=== PATIENT | male | born 1970 | race Caucasian/White ===

== ENCOUNTER 2018-05-21 13:25 | Inpatient (IN) | payer OTHER ==
[2018-05-21 14:06] VITALS: BMI 23.5
--- NOTE | 2018-05-21 15:10 | HP ---
COWS - Scale Resting Pulse: 0= [place] 80 or Below Sweatin= Chills/Flushing Restless Observation: 3= Extraneous Movement Pupil Size: 1= Pupils >than Normal Bone or Joint Aches: 2= Severe Diffuse Aches Runny Nose/ Eye Tearin= Runny Nose/Eyes GI Upset > 30mins: 2= Nausea/Diarrhea Tremor Observation: 2= Slight Tremor Visible Yawning Observation: 2= >3x During Session Anxiety or Irritability: 2=Irritable/Anxious Goose Flesh Skin: 0=Smooth Skin COWS Score: 17 CIWA Score - CIWA Score Nausea/Vomitin Muscle Tremors: 3 Anxiety: 2 Agitation: 2 Paroxysmal Sweats: 1-Minimal Palms Moist Orientation: 0-Oriented Tacttile Disturbances: 1-Very Mild Itch/Numbness Auditory Disturbances: 1-Very Mild Visual Disturbances: 1-Very Mild Sensitivity Headache: 2-Mild CIWA-Ar Total Score: 15 Admission ROS S - HPI Chief Complaint: I need help to stop using heroin,alcohol dependence,cocaine and marijuana dependence,suboxone maintenance,pcp abused hepatitis c multiple admissions in the past weight loss nicotine dependence history of hypertension,type 2 dm,neuropathy longest period of sobriety 7 years Allergies/Adverse Reactions: Allergies Allergy/AdvReac Type Severity Reaction Status Date / Time No Known Drug Allergies Allergy Verified 05/21/18 16:18 shellfish derived Allergy Difficulty Verified 05/21/18 15:16 Breathing History of Present Illness: this 47 years old male with heroin,alcohol,cocaine dependence,seeking detox,as mentioned above,on suboxone maintenance 8 mgs2 mgs sl bid has medication today history of htn type 2 dm,hepatitis c, weight loss nicotine dependence for inpatient detox Exam Limitations: No Limitations - Ebola screening Have you traveled outside of the country in the last 21 days: No Have you had contact with anyone from an Ebola affected area: No Have you been sick,other than usual withdrawal symptoms: No Do you have a fever: No - Review of Systems Constitutional: Loss of Appetite, Malaise, Night Sweats, Changes in sleep, Weakness, Unintentional Wgt. Loss EENT: reports: Tearing, Nose Congestion Respiratory: reports: No Symptoms reported Cardiac: reports: No Symptoms Reported GI: reports: Nausea, Vomiting, Abdominal cramping : reports: No Symptoms Reported Musculoskeletal: reports: Back Pain, Joint Pain, Muscle Pain Integumentary: reports: Dryness Neuro: reports: Headache, Tremors Endocrine: reports: No Symptoms Reported Hematology: reports: No Symptoms Reported Psychiatric: reports: No Sypmtoms Reported, Judgement Intact, Mood/Affect Appropiate, Orientated x3 Patient History - Patient Medical History Hx Anemia: No Hx Asthma: Yes (on albuterol inhaler) Hx Chronic Obstructive Pulmonary Disease (COPD): No Hx Cancer: No Hx Cardiac Disorders: No Hx Congestive Heart Failure: No Hx Hypertension: Yes (on med) Hx Hypercholesterolemia: No Hx Pacemaker: No HX Cerebrovascular Accident: No Hx Seizures: No Hx Dementia: No Hx Diabetes: Yes (on med) Hx Gastrointestinal Disorders: No Hx Liver Disease: No Hx Genitourinary Disorders: No Hx Sexually Transmitted Disorders: No Hx Renal Disease (ESRD): No Hx Thyroid Disease: No Hx Human Immunodeficiency Virus (HIV): No (negative last 04/29) Hx Hepatitis C: Yes (no treatment) Hx Depression: Yes (anxiety,insomnia) Hx Suicide Attempt: No Hx Bipolar Disorder: No Hx Schizophrenia: No Other Medical History: no suicidal,no homicidal - Patient Surgical History Hx Orthopedic Surgery: Yes (fx of right thumb since 1997) Other Surgical History: rhinoplasty in 1997 - PPD History Previous Implant?: Yes Documented Results: Positive w/o proof Implanted On Prior R Admission?: No PPD to be Administered?: Yes - Smoking Cessation Smoking history: Current every day smoker Have you smoked in the past 12 months: Yes Aproximately how many cigarettes per day: 3 Hx Chewing Tobacco Use: No Initiated information on smoking cessation: Yes 'Breaking Loose' booklet given: 05/21/18 - Substance & Tx. History Hx Alcohol Use: Yes Hx Substance Use: Yes Substance Use Type: Alcohol, Cocaine, Heroin Hx Substance Use Treatment: Yes (04/29 [facility]) - Substances Abused Alcohol Route: Oral Frequency: Daily Amount used: 2 40 oz beers and up Age of first use: 11 Date of Last Use: 05/20/18 PCP Route: Smoking Frequency: Daily Amount used: 1 bag Age of first use: 9 Date of Last Use: 05/20/18 Heroin Route: Inhalation Frequency: 1-2 times per week Amount used: 1 bag Age of first use: 13 Date of Last Use: 05/20/18 Cocaine Route: Smoking Frequency: 1-2 times per week Amount used: $80 Age of first use: 13 Date of Last Use: 05/20/18 Marijuana/Hashish Route: Smoking Frequency: 1-2 times per week Amount used: 1 joint Age of first use: 6 Date of Last Use: 05/18/18 Family Disease History - Family Disease History Family History: Denies Admission Physical Exam [facility] - Vital Signs Vital Signs: Vital Signs - 24 hr 05/21/18 13:44 Temperature 98.6 F Pulse Rate 80 Respiratory 18 Rate Blood Pressure 138/75 - Physical General Appearance: Yes: Moderate Distress, Tremorous, Irritable, Sweating, Anxious HEENTM: Yes: Within Normal Limits, JUNE, Pharynx Normal Respiratory: Yes: Lungs Clear, Normal Breath Sounds, No Respiratory Distress Neck: Yes: Within Normal Limits, Supple, Trachea in good position Breast: Yes: Within Normal Limits Cardiology: Yes: Within Normal Limits, Regular Rhythm, Regular Rate, S1, S2 Abdominal: Yes: Within Normal Limits, Normal Bowel Sounds, Non Tender, Flat, Soft Genitourinary: Yes: Within Normal Limits Back: Yes: Muscle Spasm Musculoskeletal: Yes: Joint Stiffness, Muscle Pain, Muscle weakness Extremities: Yes: Normal Range of Motion, Tremors Neurological: Yes: manager services II-XII NML intact, Fully Oriented, Alert, Motor Strength 5/5 Integumentary: Yes: Dry Lymphatic: Yes: Within Normal Limits - Diagnostic (1) Alcohol dependence with uncomplicated withdrawal Current Visit: Yes Status: Acute (2) Cocaine dependence Current Visit: Yes Status: Acute (3) Heroin abuse Current Visit: Yes Status: Acute (4) PCP (phencyclidine) abuse Current Visit: Yes Status: Acute (5) Positive PPD Current Visit: Yes Status: Acute (6) Encounter for monitoring Suboxone maintenance therapy Current Visit: Yes Status: Acute (7) Weight loss Current Visit: Yes Status: Acute (8) Insomnia Current Visit: Yes Status: Acute (9) Anxiety and depression Current Visit: Yes Status: Acute Cleared for Admission [facility] - Detox or Rehab [facility] Level of Care: Medically Managed Detox Regimen/Protocol: Librium [facility] Breath Alcohol Content Breath Alcohol Content: 0 Urine Drug Screen - Results Drug Screen Negative: No Urine Drug Screen Results: THC-Marijuana, HUSSEIN-Cocaine, OPI-Opiates, BAR- Barbiturates, BUP-Suboxone
[2018-05-21] MEDS ORDERED: P-EPHED 60MG/TRIPROLIDI 2.5MG TABLET PO PRN (15:32)
[2018-05-21] MEDS ORDERED: LOPERAMIDE HCL 2 MG CAPSULE PO PRN (15:32)
[2018-05-21] MEDS ORDERED: chlordiazePOXIDE HCL 25 MG CAPSULE PO PRN (15:32)
[2018-05-21] MEDS ORDERED: MAGNESIUM CITRATE 300 ML BOTTLE PO PRN (15:32)
[2018-05-21] MEDS ORDERED: MAGNESIUM HYDROX 2400MG/30ML ORAL SUSPENSION 30 ML CUP PO PRN (15:32)
[2018-05-21] MEDS ORDERED: guaiFENesin/D-METHORPHAN HB 10 ML UNIT-DOSE CUPS PO PRN (15:32)
[2018-05-21] MEDS ORDERED: MAG HYDROX/AL HYDROX/SIMETH 30 ML UNIT-DOSE CUP PO PRN (15:32)
[2018-05-21] MEDS ORDERED: ACETAMINOPHEN 325 MG TABLET (FP) PO PRN (15:32)
[2018-05-21] MEDS ORDERED: IBUPROFEN 400 MG TABLET (FP) PO PRN (15:32)
[2018-05-21] MEDS ORDERED: MENTHOL/PHENOL 1 EACH UD MM PRN (15:32)
[2018-05-21] MEDS ORDERED: ALBUTEROL SO4 8 GM HFA INHALER IH PRN (15:39)
[2018-05-21] MEDS: chlordiazePOXIDE HCL 25 MG CAPSULE PO SCH ×3 (17:33→23:37)
[2018-05-21] MEDS: NICOTINE 14 MG/24 HOURS TOPICAL PATCH TD SCH (17:33)
[2018-05-21] MEDS: GABAPENTIN 300 MG CAPSULE (FP) PO SCH ×2 (17:33→23:37)
[2018-05-21] MEDS: metFORMIN HCL 500 MG TABLET (FP) PO SCH (17:33)
[2018-05-21] MEDS ORDERED: MELATONIN 5 MG TABLETS PO PRN (22:00)
[2018-05-21] MEDS: BUPRENORPHINE/NALOXONE 8 MG/2 MG FILM PACKET SL SCH ×2 (23:00→23:37)
[2018-05-21 23:16] LABS: URINE APPEARANCE SLCLOUDY; URINE COLOR AMBER; URINE GLUCOSE (UA) 3+ (NEGATIVE); URINE KETONE TRACE (NEGATIVE); URINE LEUK ESTERASE NEGATIVE (NEGATIVE); URINE NITRITE NEGATIVE (NEGATIVE); URINE PROTEIN NEGATIVE (NEGATIVE); URINE UROBILINOGEN 4.0 E.U/dl mg/dL (0.2-1.0)
[2018-05-21] MEDS: THIAMINE HCL 100 MG TABLET (FP) PO SCH (23:37)
[2018-05-22] MEDS: GABAPENTIN 300 MG CAPSULE (FP) PO SCH ×3 (06:13→22:04)
[2018-05-22] MEDS: chlordiazePOXIDE HCL 25 MG CAPSULE PO SCH ×4 (06:13→22:04)
[2018-05-22] MEDS: metFORMIN HCL 500 MG TABLET (FP) PO SCH ×2 (07:14→17:59)
--- NOTE | 2018-05-22 07:36 | CONSULT ---
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 currently on on suboxone maintenance 8 mgs2 mgs sl bid therapy. Denies psychiatric hospitalization history. Substance Abuse History: - Smoking Cessation. Smoking history: Current every day smoker. Have you smoked in the past 12 months: Yes. Aproximately how many cigarettes per day: 3. Hx Chewing Tobacco Use: No. Initiated information on smoking cessation: Yes. 'Breaking Loose' booklet given: 05/21/18. - Substance & Tx. History. Hx Alcohol Use: Yes. Hx Substance Use: Yes. Substance Use Type : Alcohol, Cocaine, Heroin. Hx Substance Use Treatment: Yes (04/29 [facility]). - Substances Abused. Alcohol. Route: Oral. Frequency: Daily. Amount used: 2 40 oz beers and up. Age of first use: 11. Date of Last Use: 04/29. PCP. Route: Smoking. Frequency: Daily. Amount used: 1 bag. Age of first use: 9. Date of Last Use: 05/20/18. Heroin. Route: Inhalation. Frequency: 1-2 times per week. Amount used: 1 bag. Age of first use: 13. Date of Last Use: 05/20/18. Cocaine. Route: Smoking. Frequency: 1-2 times per week. Amount used: $80. Age of first use: 13. Date of Last Use: . Marijuana/Hashish. Route: Smoking. Frequency: 1-2 times per week. Amount used: 1 joint. Age of first use: 6. Date of Last Use: 05/18/18 Medical History: HepC+, DM-2, Weight loss history. Currently on Suboxone protocol 8mg po bid. Psychiatric History: Patient denies psychiatric hospitalization history, denies suicidal, homicidal history, no psychiatric medications taking prior to admission Physical/Sexual Abuse/Trauma History: Denies Additional Comment: Observation. Detox Unit Care Protocol. Mental Status Exam - Mental Status Exam Alert and Oriented to: Person Cognitive Function: Fair Patient Appearance: Unkempt Mood: Sad Affect: Flat Patient Behavior: Sedated Speech Pattern: Delayed Voice Loudness: Mildly Soft/Quiet Thought Process: Goal Oriented Thought Disorder: Being Controlled Hallucinations: Denies Suicidal Ideation: Denies Homicidal Ideation: Denies Insight/Judgement: Fair Sleep: Difficulty falling asleep Appetite: Weight loss Muscle strength/Tone: Normal Gait/Station: Shuffling Additional Comments: Observation. Detox Unit Care Protocol. Psychiatric Findings - Problem List ([place] 1, 2,3) (1) Hep C w/ coma, chronic Current Visit: Yes Status: Acute (2) DM type 2 (diabetes mellitus, type 2) Current Visit: Yes Status: Acute (3) Weight loss Current Visit: Yes Status: Acute (4) Alcohol dependence with uncomplicated withdrawal Current Visit: Yes Status: Acute (5) Anxiety and depression Current Visit: Yes Status: Acute (6) Cocaine dependence Current Visit: Yes Status: Acute (7) Encounter for monitoring Suboxone maintenance therapy Current Visit: Yes Status: Acute (8) Heroin abuse Current Visit: Yes Status: Acute (9) PCP (phencyclidine) abuse Current Visit: Yes Status: Acute - Initial Treatment Plan Initial Treatment Plan: Observation. Detox Unit Care Protocol.
[2018-05-22 10:06] LABS: HEMATOCRIT 39.3 % (35.4-49); HEMOGLOBIN 12.8 GM/dL (11.7-16.9); MCH 30.2 pg (25.7-33.7); MCHC 32.7 g/dl (32.0-35.9); MEAN CELL VOLUME 92.6 fl (80-96); MEAN PLT VOLUME 9.6 fl (7.5-11.1); PLATELET COUNT 201 K/MM3 (134-434); RBC 4.24 M/mm3 (4.00-5.60); RDW 14.2 % (11.9-15.9)
[2018-05-22] MEDS: NICOTINE 14 MG/24 HOURS TOPICAL PATCH TD SCH (10:06)
[2018-05-22] MEDS: PRENATAL VITAMINS W/ FOLIC ACID TABLET (FP) PO SCH (10:06)
[2018-05-22] MEDS: BUPRENORPHINE/NALOXONE 8 MG/2 MG FILM PACKET SL SCH ×2 (10:07→22:04)
[2018-05-22] MEDS: NICOTINE POLACRILEX 2 MG GUM BC PRN (10:11)
[2018-05-22 10:23] LABS: ALBUMIN 3.3 g/dl (3.4-5.0); ALK PHOS 59 U/L (45-117); ANION GAP 7 MMOL/L (8-16); BILIRUBIN,TOTAL 0.6 mg/dL (0.2-1); BLOOD UREA NITROGEN 12 mg/dL (7-18); CHLORIDE 102 mmol/L (98-107); CO2 29 mmol/L (21-32); CREATININE 0.8 mg/dL (0.55-1.3); GLUCOSE,RANDOM 247 mg/dL (74-106); POTASSIUM 4.4 mmol/L (3.5-5.1); SGOT/AST 48 U/L (15-37); SGPT/ALT 72 U/L (13-61); SODIUM 137 mmol/L (136-145); TOT PROT 6.4 g/dl (6.4-8.2)
--- NOTE | 2018-05-22 11:42 | PN ---
[facility] CIWA - CIWA Score Nausea/Vomitin-Mild Nausea/No Vomiting Muscle Tremors: 4-Moderate,w/Arms Extend Anxiety: 4-Mod. Anxious/Guarded Agitation: 3 Paroxysmal Sweats: 1-Minimal Palms Moist Orientation: 0-Oriented Tacttile Disturbances: 1-Very Mild Itch/Numbness Auditory Disturbances: 0-None Visual Disturbances: 0-None Headache: 0-None Present CIWA-Ar Total Score: 14 BHS COWS - Scale Resting Pulse: 0= [place] 80 or Below Sweatin= Chills/Flushing Restless Observation: 1= Difficult to Sit Still Pupil Size: 0= Normal to Room Light Bone or Joint Aches: 2= Severe Diffuse Aches Runny Nose/ Eye Tearin= Runny Nose/Eyes GI Upset > 30mins: 2= Nausea/Diarrhea Tremor Observation of Outstretched Hands: 2= Slight Tremor Visible Yawning Observation: 2= >3x During Session Anxiety or Irritability: 2=Irritable/Anxious Goose Flesh Skin: 0=Smooth Skin COWS Score: 14 [facility] Progress Note (SOAP) Subjective: sweat tremor chill hot trouble sleep at night body ache muscle cramp Objective: 05/22/18 11:49 Vital Signs Temperature 97.7 F 05/22/18 10:50 Pulse Rate 88 05/22/18 10:50 Respiratory Rate 17 05/22/18 10:50 Blood Pressure 105/62 05/22/18 10:50 O2 Sat by Pulse Oximetry (%) Laboratory Last Values WBC 6.0 K/mm3 (4.0-10.0) 05/22/18 06:00 RBC 4.24 M/mm3 (4.00-5.60) 05/22/18 06:00 Hgb 12.8 GM/dL (11.7-16.9) 05/22/18 06:00 Hct 39.3 % (35.4-49) 05/22/18 06:00 MCV 92.6 fl (80-96) 05/22/18 06:00 MCH 30.2 pg (25.7-33.7) 05/22/18 06:00 MCHC 32.7 g/dl (32.0-35.9) 05/22/18 06:00 RDW 14.2 % (11.9-15.9) 05/22/18 06:00 Plt Count 201 K/MM3 (134-434) 05/22/18 06:00 MPV 9.6 fl (7.5-11.1) 05/22/18 06:00 Sodium 137 mmol/L (136-145) 05/22/18 06:00 Potassium 4.4 mmol/L (3.5-5.1) 05/22/18 06:00 Chloride 102 mmol/L (98-107) 05/22/18 06:00 Carbon Dioxide 29 mmol/L (21-32) 05/22/18 06:00 Anion Gap 7 MMOL/L (8-16) L 05/22/18 06:00 BUN 12 mg/dL (7-18) 05/22/18 06:00 Creatinine 0.8 mg/dL (0.55-1.3) 05/22/18 06:00 Creat Clearance w eGFR > 60 (>60) 05/22/18 06:00 POC Glucometer 205 UNITS (80-120) 05/22/18 07:12 Random Glucose 247 mg/dL (74-106) H 05/22/18 06:00 Calcium 9.0 mg/dL (8.5-10.1) 05/22/18 06:00 Total Bilirubin 0.6 mg/dL (0.2-1) 05/22/18 06:00 AST 48 U/L (15-37) H 05/22/18 06:00 ALT 72 U/L (13-61) H 05/22/18 06:00 Alkaline Phosphatase 59 U/L (45-117) 05/22/18 06:00 Total Protein 6.4 g/dl (6.4-8.2) 05/22/18 06:00 Albumin 3.3 g/dl (3.4-5.0) L 05/22/18 06:00 Urine Color Cathleen 05/21/18 23:00 Urine Appearance Slcloudy 05/21/18 23:00 Urine pH 5.0 (5.0-8.0) 05/21/18 23:00 Ur Specific [place] 1.032 (1.010-1.035) 05/21/18 23:00 Urine Protein Negative (NEGATIVE) 05/21/18 23:00 Urine Glucose (UA) 3+ (NEGATIVE) H 05/21/18 23:00 Urine Ketones Trace (NEGATIVE) H 05/21/18 23:00 Urine Blood Negative (NEGATIVE) 05/21/18 23:00 Urine Nitrite Negative (NEGATIVE) 05/21/18 23:00 Urine Bilirubin 2.0 (<2.0 mg/dL) 05/21/18 23:00 Urine Urobilinogen 4.0 e.u/dl mg/dL (0.2-1.0) 05/21/18 23:00 Ur Leukocyte Esterase Negative (NEGATIVE) 05/21/18 23:00 RPR Titer Nonreactive (NONREACTIVE) 05/22/18 06:00 lab noted Assessment: 05/22/18 11:50 withdrawal sx Plan: continue detox
[2018-05-22] MEDS: LISINOPRIL 20 MG TABLET (FP) PO SCH (11:57)
--- NOTE | 2018-05-22 12:14 | EKG ---
Test Reason : Blood Pressure : / mmHG Vent. Rate : 065 BPM Atrial Rate : 065 BPM P-R Int : 140 ms QRS Dur : 086 ms QT Int : 374 ms P-R-T Axes : 065 069 066 degrees QTc Int : 388 ms NORMAL SINUS RHYTHM MINIMAL VOLTAGE CRITERIA FOR LVH, MAY BE NORMAL VARIANT EARLY REPOLARIZATION BORDERLINE ECG NO PREVIOUS ECGS AVAILABLE Confirmed by NADIYA LU MD ([id number]) on 05/22/2018 12:13:41 PM Referred By: Confirmed By:NADIYA LU MD
[2018-05-22] MEDS: THIAMINE HCL 100 MG TABLET (FP) PO SCH (22:04)
[2018-05-23] MEDS: metFORMIN HCL 500 MG TABLET (FP) PO SCH ×2 (06:30→17:38)
[2018-05-23] MEDS: GABAPENTIN 300 MG CAPSULE (FP) PO SCH ×3 (06:30→22:14)
[2018-05-23] MEDS: chlordiazePOXIDE HCL 25 MG CAPSULE PO SCH ×2 (06:30→10:51)
[2018-05-23] MEDS: PRENATAL VITAMINS W/ FOLIC ACID TABLET (FP) PO SCH (10:47)
[2018-05-23] MEDS: BUPRENORPHINE/NALOXONE 8 MG/2 MG FILM PACKET SL SCH ×2 (10:47→22:14)
[2018-05-23] MEDS: NICOTINE 14 MG/24 HOURS TOPICAL PATCH TD SCH (10:47)
[2018-05-23] MEDS: LISINOPRIL 20 MG TABLET (FP) PO SCH (10:48)
--- NOTE | 2018-05-23 11:11 | PN ---
[facility] CIWA - CIWA Score Nausea/Vomitin-No Nausea/No Vomiting Muscle Tremors: 3 Anxiety: 2 Agitation: 4-Moderately Restless Paroxysmal Sweats: 3 Orientation: 0-Oriented Tacttile Disturbances: 0-None Auditory Disturbances: 0-None Visual Disturbances: 0-None Headache: 0-None Present CIWA-Ar Total Score: 12 BHS COWS - Scale Resting Pulse: 1= [place] 81-100 Sweatin= Chills/Flushing Restless Observation: 1= Difficult to Sit Still Pupil Size: 0= Normal to Room Light Bone or Joint Aches: 2= Severe Diffuse Aches Runny Nose/ Eye Tearin= Nasal Congestion GI Upset > 30mins: 1= Stomach Cramp Tremor Observation of Outstretched Hands: 2= Slight Tremor Visible Yawning Observation: 1= 1-2x During Session Anxiety or Irritability: 1=Feels Anxious/Irritable Goose Flesh Skin: 0=Smooth Skin COWS Score: 11 S Progress Note (SOAP) Subjective: irritable agitation anxiety sweats chills Objective: 05/23/18 11:11 Vital Signs Temperature 97.3 F L 05/23/18 10:09 Pulse Rate 88 05/23/18 10:09 Respiratory Rate 18 05/23/18 10:09 Blood Pressure 123/70 05/23/18 10:09 O2 Sat by Pulse Oximetry (%) Laboratory Tests 05/21/18 05/21/18 05/22/18 15:10 23:00 06:00 WBC 6.0 RBC 4.24 Hgb 12.8 Hct 39.3 MCV 92.6 MCH 30.2 MCHC 32.7 RDW 14.2 Plt Count 201 MPV 9.6 Sodium Potassium Chloride Carbon Dioxide Anion Gap BUN Creatinine Creat Clearance w eGFR POC Glucometer 243 Random Glucose Calcium Total Bilirubin AST ALT Alkaline Phosphatase Total Protein Albumin Urine Color Cathleen Urine Appearance Slcloudy Urine pH 5.0 Ur Specific [place] 1.032 Urine Protein Negative Urine Glucose (UA) 3+ H Urine Ketones Trace H Urine Blood Negative Urine Nitrite Negative Urine Bilirubin 2.0 Urine Urobilinogen 4.0 e.u/dl Ur Leukocyte Esterase Negative RPR Titer 05/22/18 05/22/18 05/22/18 06:00 06:00 07:12 WBC RBC Hgb Hct MCV MCH MCHC RDW Plt Count MPV Sodium 137 Potassium 4.4 Chloride 102 Carbon Dioxide 29 Anion Gap 7 L BUN 12 Creatinine 0.8 Creat Clearance w eGFR > 60 POC Glucometer 205 Random Glucose 247 H Calcium 9.0 Total Bilirubin 0.6 AST 48 H ALT 72 H Alkaline Phosphatase 59 Total Protein 6.4 Albumin 3.3 L Urine Color Urine Appearance Urine pH Ur Specific [place] Urine Protein Urine Glucose (UA) Urine Ketones Urine Blood Urine Nitrite Urine Bilirubin Urine Urobilinogen Ur Leukocyte Esterase RPR Titer Nonreactive 05/22/18 05/23/18 16:30 06:25 WBC RBC Hgb Hct MCV MCH MCHC RDW Plt Count MPV Sodium Potassium Chloride Carbon Dioxide Anion Gap BUN Creatinine Creat Clearance w eGFR POC Glucometer 181 193 Random Glucose Calcium Total Bilirubin AST ALT Alkaline Phosphatase Total Protein Albumin Urine Color Urine Appearance Urine pH Ur Specific [place] Urine Protein Urine Glucose (UA) Urine Ketones Urine Blood Urine Nitrite Urine Bilirubin Urine Urobilinogen Ur Leukocyte Esterase RPR Titer aaox3 ambulating no acute distress Assessment: 05/23/18 11:11 withdrawal sx Plan: continue detox increase fluids
[2018-05-23] MEDS: chlordiazePOXIDE 5 MG CAPSULE PO SCH ×2 (18:19→22:14)
[2018-05-23] MEDS: THIAMINE HCL 100 MG TABLET (FP) PO SCH (22:14)
[2018-05-24] MEDS: chlordiazePOXIDE 5 MG CAPSULE PO SCH ×2 (07:34→10:54)
[2018-05-24] MEDS: GABAPENTIN 300 MG CAPSULE (FP) PO SCH ×3 (07:34→23:00)
[2018-05-24] MEDS: PRENATAL VITAMINS W/ FOLIC ACID TABLET (FP) PO SCH (10:51)
[2018-05-24] MEDS: LISINOPRIL 20 MG TABLET (FP) PO SCH (10:52)
[2018-05-24] MEDS: NICOTINE 14 MG/24 HOURS TOPICAL PATCH TD SCH (10:52)
[2018-05-24] MEDS: BUPRENORPHINE/NALOXONE 8 MG/2 MG FILM PACKET SL SCH ×2 (10:52→23:01)
[2018-05-24] MEDS: NICOTINE POLACRILEX 2 MG GUM BC PRN (10:57)
--- NOTE | 2018-05-24 11:06 | PN ---
[facility] Progress Note Note: Vital Signs Temperature 97.9 F 05/24/18 10:31 Pulse Rate 71 05/24/18 10:31 Respiratory Rate 18 05/24/18 10:31 Blood Pressure 113/66 05/24/18 10:31 O2 Sat by Pulse Oximetry (%) Laboratory Last Values WBC 6.0 K/mm3 (4.0-10.0) 05/22/18 06:00 RBC 4.24 M/mm3 (4.00-5.60) 05/22/18 06:00 Hgb 12.8 GM/dL (11.7-16.9) 05/22/18 06:00 Hct 39.3 % (35.4-49) 05/22/18 06:00 MCV 92.6 fl (80-96) 05/22/18 06:00 MCH 30.2 pg (25.7-33.7) 05/22/18 06:00 MCHC 32.7 g/dl (32.0-35.9) 05/22/18 06:00 RDW 14.2 % (11.9-15.9) 05/22/18 06:00 Plt Count 201 K/MM3 (134-434) 05/22/18 06:00 MPV 9.6 fl (7.5-11.1) 05/22/18 06:00 Sodium 137 mmol/L (136-145) 05/22/18 06:00 Potassium 4.4 mmol/L (3.5-5.1) 05/22/18 06:00 Chloride 102 mmol/L (98-107) 05/22/18 06:00 Carbon Dioxide 29 mmol/L (21-32) 05/22/18 06:00 Anion Gap 7 MMOL/L (8-16) L 05/22/18 06:00 BUN 12 mg/dL (7-18) 05/22/18 06:00 Creatinine 0.8 mg/dL (0.55-1.3) 05/22/18 06:00 Creat Clearance w eGFR > 60 (>60) 05/22/18 06:00 POC Glucometer 298 UNITS (80-120) 05/23/18 16:46 Random Glucose 247 mg/dL (74-106) H 05/22/18 06:00 Calcium 9.0 mg/dL (8.5-10.1) 05/22/18 06:00 Total Bilirubin 0.6 mg/dL (0.2-1) 05/22/18 06:00 AST 48 U/L (15-37) H 05/22/18 06:00 ALT 72 U/L (13-61) H 05/22/18 06:00 Alkaline Phosphatase 59 U/L (45-117) 05/22/18 06:00 Total Protein 6.4 g/dl (6.4-8.2) 05/22/18 06:00 Albumin 3.3 g/dl (3.4-5.0) L 05/22/18 06:00 Urine Color Cathleen 05/21/18 23:00 Urine Appearance Slcloudy 05/21/18 23:00 Urine pH 5.0 (5.0-8.0) 05/21/18 23:00 Ur Specific [place] 1.032 (1.010-1.035) 05/21/18 23:00 Urine Protein Negative (NEGATIVE) 05/21/18 23:00 Urine Glucose (UA) 3+ (NEGATIVE) H 05/21/18 23:00 Urine Ketones Trace (NEGATIVE) H 05/21/18 23:00 Urine Blood Negative (NEGATIVE) 05/21/18 23:00 Urine Nitrite Negative (NEGATIVE) 05/21/18 23:00 Urine Bilirubin 2.0 (<2.0 mg/dL) 05/21/18 23:00 Urine Urobilinogen 4.0 e.u/dl mg/dL (0.2-1.0) 05/21/18 23:00 Ur Leukocyte Esterase Negative (NEGATIVE) 05/21/18 23:00 RPR Titer Nonreactive (NONREACTIVE) 05/22/18 06:00 Irritable, anxious, back pain, + edema b/l lower extremities, pain on b/l plantar surface ( chronic) Aox3, anxious, irritable no adventitious breath sounds Skin intact, + 1 no-pitting edema both feet Full ROM ambulating in the unit independently withdrawal sx back pain increase PO fluids continue detox flexeril PRN lidocaine TP QD WI elevated lower extremities continue to monitor
[2018-05-24] MEDS ORDERED: LIDOCAINE 5% TOPICAL PATCH TP SCH (11:15)
[2018-05-24] MEDS: metFORMIN HCL 500 MG TABLET (FP) PO SCH ×2 (11:25→18:06)
[2018-05-24] MEDS: CYCLOBENZAPRINE HCL 5 MG TABLET PO SCH ×2 (13:10→23:00)
[2018-05-24] MEDS: hydrOXYzine PAMOATE 50 MG CAPSULE (FP) PO PRN (13:11)
[2018-05-24] MEDS: chlordiazePOXIDE HCL 10 MG CAPSULE PO SCH ×2 (18:06→23:01)
[2018-05-24] MEDS ORDERED: LIDOCAINE PATCH REMOVAL MC SCH (22:00)
[2018-05-24] MEDS: THIAMINE HCL 100 MG TABLET (FP) PO SCH (23:01)
[2018-05-25] MEDS: GABAPENTIN 300 MG CAPSULE (FP) PO SCH (06:54)
[2018-05-25] MEDS: chlordiazePOXIDE HCL 10 MG CAPSULE PO SCH ×2 (06:54→10:42)
[2018-05-25] MEDS: CYCLOBENZAPRINE HCL 5 MG TABLET PO SCH (06:54)
[2018-05-25] MEDS: metFORMIN HCL 500 MG TABLET (FP) PO SCH (06:55)
--- NOTE | 2018-05-25 09:14 | DS ---
[facility] Detox Discharge Summary Admission Date: 05/21/18 Discharge Date: 05/25/18 - History Present History: Alcohol Dependence Additional Comments: 47 years old male admitted on 05/21/18 for alcohol withdrawal sx completed alcohol detox regimen tolerated well denies alcohol withdrawal sx alert oriented x 3 no acute distress after care [facility] - Physical Exam Results Vital Signs: Vital Signs Temperature 97.3 F L 05/25/18 07:53 Pulse Rate 64 05/25/18 07:53 Respiratory Rate 18 05/25/18 07:53 Blood Pressure 120/67 05/25/18 07:53 O2 Sat by Pulse Oximetry (%) Pertinent Admission Physical Exam Findings: alcohol withdrawal sx Vital Signs Temperature 97.9 F 05/25/18 09:52 Pulse Rate 61 05/25/18 09:52 Respiratory Rate 18 05/25/18 09:52 Blood Pressure 95/62 05/25/18 09:52 O2 Sat by Pulse Oximetry (%) Laboratory Last Values WBC 6.0 K/mm3 (4.0-10.0) 05/22/18 06:00 RBC 4.24 M/mm3 (4.00-5.60) 05/22/18 06:00 Hgb 12.8 GM/dL (11.7-16.9) 05/22/18 06:00 Hct 39.3 % (35.4-49) 05/22/18 06:00 MCV 92.6 fl (80-96) 05/22/18 06:00 MCH 30.2 pg (25.7-33.7) 05/22/18 06:00 MCHC 32.7 g/dl (32.0-35.9) 05/22/18 06:00 RDW 14.2 % (11.9-15.9) 05/22/18 06:00 Plt Count 201 K/MM3 (134-434) 05/22/18 06:00 MPV 9.6 fl (7.5-11.1) 05/22/18 06:00 Sodium 137 mmol/L (136-145) 05/22/18 06:00 Potassium 4.4 mmol/L (3.5-5.1) 05/22/18 06:00 Chloride 102 mmol/L (98-107) 05/22/18 06:00 Carbon Dioxide 29 mmol/L (21-32) 05/22/18 06:00 Anion Gap 7 MMOL/L (8-16) L 05/22/18 06:00 BUN 12 mg/dL (7-18) 05/22/18 06:00 Creatinine 0.8 mg/dL (0.55-1.3) 05/22/18 06:00 Creat Clearance w eGFR > 60 (>60) 05/22/18 06:00 POC Glucometer 251 UNITS (80-120) 05/25/18 06:31 Random Glucose 247 mg/dL (74-106) H 05/22/18 06:00 Calcium 9.0 mg/dL (8.5-10.1) 05/22/18 06:00 Total Bilirubin 0.6 mg/dL (0.2-1) 05/22/18 06:00 AST 48 U/L (15-37) H 05/22/18 06:00 ALT 72 U/L (13-61) H 05/22/18 06:00 Alkaline Phosphatase 59 U/L (45-117) 05/22/18 06:00 Total Protein 6.4 g/dl (6.4-8.2) 05/22/18 06:00 Albumin 3.3 g/dl (3.4-5.0) L 05/22/18 06:00 Urine Color Cathleen 05/21/18 23:00 Urine Appearance Slcloudy 05/21/18 23:00 Urine pH 5.0 (5.0-8.0) 05/21/18 23:00 Ur Specific [place] 1.032 (1.010-1.035) 05/21/18 23:00 Urine Protein Negative (NEGATIVE) 05/21/18 23:00 Urine Glucose (UA) 3+ (NEGATIVE) H 05/21/18 23:00 Urine Ketones Trace (NEGATIVE) H 05/21/18 23:00 Urine Blood Negative (NEGATIVE) 05/21/18 23:00 Urine Nitrite Negative (NEGATIVE) 05/21/18 23:00 Urine Bilirubin 2.0 (<2.0 mg/dL) 05/21/18 23:00 Urine Urobilinogen 4.0 e.u/dl mg/dL (0.2-1.0) 05/21/18 23:00 Ur Leukocyte Esterase Negative (NEGATIVE) 05/21/18 23:00 RPR Titer Nonreactive (NONREACTIVE) 05/22/18 06:00 lab noted - Treatment Hospital Course: Detox Protocol Followed, Detoxed Safely, Responded well, Discharged Condition Good, Rehab Referral Accepted Patient has Accepted a Rehab Referral to: [facility] Medication Discharge Medications: Ambulatory Orders Albuterol Sulfate Inhaler - [Ventolin HFA Inhaler -] 2 inh PO Q4H PRN 05/21/18 Buprenorphine/Naloxone [Suboxone 8Mg/2Mg Sl Film -] 1 each SL BID 05/21/18 Gabapentin [Neurontin -] 300 mg PO Q8H 05/21/18 Lisinopril 20 mg PO DAILY 05/21/18 Metformin HCl [Glucophage] 1,000 mg PO BID 05/21/18 Albuterol Sulfate Inhaler - [Ventolin HFA Inhaler -] 2 puff IH Q4H PRN #1 inhaler 05/24/18 Lisinopril [Prinivil] 20 mg PO DAILY #30 tablet 05/24/18 metFORMIN HCL [Glucophage -] 1,000 mg PO BIDAC #30 tablet 05/24/18 - Diagnosis (1) Alcohol dependence with uncomplicated withdrawal Status: Acute (2) DM type 2 (diabetes mellitus, type 2) Status: Chronic Qualifiers: Diabetes mellitus terminal worker insulin use: without terminal worker use Diabetes mellitus complication status: with unspecified complications Qualified Code(s) : E11.8 - Type 2 diabetes mellitus with unspecified complications (3) Encounter for monitoring Suboxone maintenance therapy Status: Chronic (4) Positive PPD Status: Resolved (5) Weight loss Status: Acute (6) Hep C w/ coma, chronic Status: Chronic - AMA Did Patient Leave Against Medical Advice: No
[2018-05-25 09:54] VITALS: BP 95/62; PULSE 61; TEMP 97.9
[2018-05-25] MEDS: LISINOPRIL 20 MG TABLET (FP) PO SCH (10:42)
[2018-05-25] MEDS: PRENATAL VITAMINS W/ FOLIC ACID TABLET (FP) PO SCH (10:42)
[2018-05-25] MEDS: NICOTINE 14 MG/24 HOURS TOPICAL PATCH TD SCH (10:42)
[2018-05-25] MEDS: hydrOXYzine PAMOATE 50 MG CAPSULE (FP) PO PRN (10:42)
[2018-05-25] MEDS: BUPRENORPHINE/NALOXONE 8 MG/2 MG FILM PACKET SL SCH (11:58)
== END 2018-05-25 11:30 | disposition home or self-care (01) | DRG 773 ==
LOC: YASAS 13:25 → Y6N 15:45
PROC: HZ2ZZZZ Detoxification Services for Substance Abuse Treatment (ICD-10-PCS; principal; 2018-05-21)
DX: F10.230 Alcohol dependence with withdrawal, uncomplicated (principal); F14.20 Cocaine dependence, uncomplicated; F11.10 Opioid abuse, uncomplicated; F16.10 Hallucinogen abuse, uncomplicated; F41.8 Other specified anxiety disorders; F32.9 Major depressive disorder, single episode, unspecified; B18.2 Chronic viral hepatitis C; G47.00 Insomnia, unspecified; R76.11 Nonspecific reaction to tuberculin skin test without active tuberculosis; E11.9 Type 2 diabetes mellitus without complications; Z79.84 Long term (current) use of oral hypoglycemic drugs; R63.4 Abnormal weight loss; Z68.23 Body mass index [BMI] 23.0-23.9, adult; Z51.81 Encounter for therapeutic drug level monitoring; Z91.013 Allergy to seafood
CPT/HCPCS: 36415; 80053; 81003; 82962; 85027; 86593; 93005; 93010

== ENCOUNTER 2023-09-30 20:53 | Inpatient (IN) | payer BC, OTHER ==
[2023-09-30 21:15] VITALS: BMI 22.8
[2023-09-30 22:18] LABS: BASO % 0.3 % (0-2.0); EOS % 0.3 % (0-4.5); HEMATOCRIT 33.8 % (35.4-49); LYMPH % 11.9 % (8-40); MCH 30.3 pg (25.7-33.7); MCHC 32.7 g/dl (32.0-35.9); MEAN CELL VOLUME 92.7 fl (80-96); MEAN PLT VOLUME 7.1 fl (7.5-11.1); MONO % 8.2 % (3.8-10.2); NEUT % 79.3 % (42.8-82.8); PLATELET COUNT 344 10^3/uL (134-434); RBC 3.65 M/mm3 (4.00-5.60); RDW 14.3 % (11.9-15.9); VENOUS BASE EXCESS -0.1 mmol/L (-2-2); VENOUS O2 SATURATION 88.7 % (70-80); VENOUS PCO2 49.9 mmHg (38-52); VENOUS PH 7.338 (7.310-7.410); WHITE BLOOD COUNT 11.2 K/mm3 (4.0-10.0)
[2023-09-30 22:28] LABS: INR 1.02 (0.83-1.09); PROTHROMBIN TIME (PATIENT) 11.8 SEC (9.7-13.0)
[2023-09-30 22:31] LABS: ACTIVATED PTT 36.5 SECONDS (25.2-36.5)
[2023-09-30 22:37] LABS: CHLORIDE 96 mmol/L (98-107); POTASSIUM 4.1 mmol/L (3.5-5.1); SODIUM 132 mmol/L (136-145)
[2023-09-30 22:39] LABS: CALCIUM 8.6 mg/dL (8.5-10.1)
[2023-09-30 22:40] LABS: ALBUMIN 2.8 g/dl (3.4-5.0); ANION GAP 8 mmol/L (4-13); BLOOD UREA NITROGEN 14.5 mg/dL (7-18); CO2 28 mmol/L (21-32)
[2023-09-30 22:43] LABS: CREATININE 1.1 mg/dL (0.55-1.3); SGOT/AST 24 U/L (15-37); SGPT/ALT 46 U/L (13-61)
[2023-09-30 22:44] LABS: BILIRUBIN,TOTAL 0.3 mg/dL (0.2-1)
[2023-09-30 22:45] LABS: TOT PROT 6.8 g/dl (6.4-8.2)
[2023-09-30 22:46] LABS: ALK PHOS 137 U/L (45-117)
[2023-09-30 22:47] LABS: LACTIC ACID 3.6 mmol/L (0.4-2.0)
[2023-09-30 22:48] LABS: GLUCOSE,RANDOM 759 mg/dL (74-106)
[2023-09-30] MEDS: ACETAMINOPHEN 1000 MG/100 ML BAG IVPB ONE (23:06)
[2023-09-30] MEDS: SODIUM CHLORIDE 0.9% 500 ML INFUS.BAG IV ONE (23:06)
[2023-09-30] MEDS: PIPERACILLIN/TAZOB 4.5 GM 4.5 GM in DEXTROSE 5%-WATER 100 ML IVPB ONE (23:06)
[2023-09-30] MEDS ORDERED: ACETAMINOPHEN INJECTION 100 ML IVPB ONE (23:10)
[2023-09-30] MEDS ORDERED: PIPERACILLIN/TAZOB 4.5 GM 4.5 GM/100 ML BAG IVPB ONE (23:10)
[2023-09-30 23:14] LABS: ERYTHROCYTE SEDIMENTATION RATE 38 mm/hr (0-20)
[2023-09-30] MEDS: INSULIN REGULAR HUMAN 100 UNITS/ML *VIAL IVPUSH ONE (23:29)
[2023-09-30] MEDS: INSULIN (NOVOLOG) ASPART 100 UNITS/ML 10ML VIAL SQ ONE (23:34)
[2023-09-30] MEDS ORDERED: VANCOMYCIN 1 GRAM (PRE-DOCKED) 1,000 MG/250 ML BAG IVPB ONE (23:48)
[2023-09-30 23:57] LABS: MAGNESIUM 1.6 mg/dL (1.8-2.4)
[2023-10-01 00:01] LABS: PHOSPHOROUS 3.6 mg/dL (2.5-4.9)
[2023-10-01] MEDS: SODIUM CHLORIDE 0.9% 500 ML INFUS.BAG IV ONE (00:03)
[2023-10-01] MEDS: VANCOMYCIN 1,000 MG in DEXTROSE 5%-WATER - 250 ML IVPB ONE (00:03)
[2023-10-01] MEDS ORDERED: ALBUTEROL SO4 HFA INHALER IH PRN (02:47)
[2023-10-01] MEDS: INSULIN REGULAR HUMAN 100 UNITS/ML *VIAL IVPUSH ONE ×2 (04:02→04:55)
[2023-10-01] MEDS: SODIUM CHLORIDE 2,000 ML IV STA (04:53)
[2023-10-01 06:21] LABS: ARTERIAL BLD GAS O2 SATURATION 80.5 % (95-98); ARTERIAL BLOOD GAS BASE EXCESS -0.1 mmol/L (-2-2); ARTERIAL BLOOD GAS PO2 45.2 mmHg (80-100); ARTERIAL BLOOD GAS pH 7.385 (7.350-7.450)
[2023-10-01] MEDS: INSULIN ASPART SLIDING SCALE (NOVOLOG) 1 VIAL SQ SCH (07:03)
[2023-10-01] MEDS: SODIUM CHLORIDE 1,000 ML IV SCH (07:07)
[2023-10-01] MEDS: INSULIN (LEVEMIR) 100 UNITS/ML UNITS SQ SCH (07:49)
[2023-10-01] MEDS: INSULIN (NOVOLOG) ASPART 100 UNITS/ML 10ML VIAL SQ ONE (07:49)
[2023-10-01] MEDS: MAGNESIUM SULF 50% (8.12 MEQ/2 ML-1 GM VIAL) IVPB ONE (07:50)
[2023-10-01 09:38] LABS: POTASSIUM 3.6 mmol/L (3.5-5.1)
[2023-10-01] MEDS: ENOXAPARIN NA (PORCINE) 40 MG/0.4 ML DISP.SYRIN SQ SCH (09:38)
[2023-10-01 09:40] LABS: BLOOD UREA NITROGEN 10.9 mg/dL (7-18)
[2023-10-01] MEDS: PIPERACILLIN/TAZOB 3.375 GM 3.375 GM in DEXTROSE 5%-WATER - 50 ML IVPB SCH ×2 (09:42→17:22)
[2023-10-01 09:43] LABS: CREATININE 0.6 mg/dL (0.55-1.3)
[2023-10-01 09:44] LABS: PHOSPHOROUS 2.4 mg/dL (2.5-4.9)
[2023-10-01] MEDS ORDERED: GABAPENTIN 300 MG CAPSULE PO SCH (10:00)
[2023-10-01] MEDS: VANCOMYCIN/WATER FOR INJ (PEG) 1,000 MG/200 ML BAG IVPB SCH ×2 (10:30→21:33)
[2023-10-01] MEDS: VANCOMYCIN 1,000 MG in DEXTROSE 5%-WATER - 250 ML IVPB SCH (12:20)
[2023-10-01] MEDS: methaDONE HCL 10 MG TABLET PO ONE ×2 (13:47→13:59)
[2023-10-01] MEDS: amLODIPine BESYLATE 5 MG TABLET (FP) PO SCH (18:19)
[2023-10-01] MEDS: NAPH,MB-DB/K PH,MBDB POWDER PACKET PO ONE (18:19)
[2023-10-01] MEDS: cloNIDine HCL 0.1 MG TABLET PO PRN (21:34)
[2023-10-01] MEDS ORDERED: PIPERACILLIN/TAZOB 3.375 GM 3.375 GM in DEXTROSE 5%-WATER - 50 ML IVPB SCH (22:00)
[2023-10-02] MEDS: INSULIN (NOVOLOG) ASPART 100 UNITS/ML 10ML VIAL SQ ONE (06:24)
[2023-10-02] MEDS: HALOPERIDOL LACTATE 5 MG/ML IM ONE (09:37)
[2023-10-02 09:53] LABS: BASO % 0.5 % (0-2.0); EOS % 0.6 % (0-4.5); HEMATOCRIT 35.4 % (35.4-49); HEMOGLOBIN 12.1 GM/dL (11.7-16.9); LYMPH % 25.9 % (8-40); MCH 30.1 pg (25.7-33.7); MCHC 34.1 g/dl (32.0-35.9); MEAN CELL VOLUME 88.4 fl (80-96); MEAN PLT VOLUME 7.3 fl (7.5-11.1); MONO % 7.4 % (3.8-10.2); NEUT % 65.6 % (42.8-82.8); PLATELET COUNT 409 10^3/uL (134-434); RBC 4.01 M/mm3 (4.00-5.60); RDW 14.5 % (11.9-15.9)
[2023-10-02 10:06] LABS: POTASSIUM 3.9 mmol/L (3.5-5.1)
[2023-10-02 10:27] LABS: CALCIUM 9.2 mg/dL (8.5-10.1)
[2023-10-02 10:28] LABS: ALBUMIN 2.7 g/dl (3.4-5.0)
[2023-10-02 10:31] LABS: CREATININE 0.5 mg/dL (0.55-1.3)
[2023-10-02 10:32] LABS: BILIRUBIN,TOTAL 0.7 mg/dL (0.2-1)
[2023-10-02 10:33] LABS: TOT PROT 6.5 g/dl (6.4-8.2)
[2023-10-02] MEDS ORDERED: DEXTROSE 50%-WATER - 25 GM/50 ML VIAL IVPUSH PRN (11:26)
[2023-10-02] MEDS ORDERED: amLODIPine BESYLATE 5 MG TABLET (FP) PO ONE (11:35)
[2023-10-02] MEDS: INSULIN (LEVEMIR) 100 UNITS/ML UNITS SQ SCH (21:33)
[2023-10-03] MEDS: amLODIPine BESYLATE 5 MG TABLET (FP) PO SCH (09:46)
[2023-10-03] MEDS: methaDONE HCL 10 MG TABLET PO ONE (09:50)
[2023-10-03] MEDS ORDERED: amLODIPine BESYLATE 10 MG TABLET (FP) PO SCH (10:00)
[2023-10-03] MEDS: ACETAMINOPHEN 500 MG TABLET (FP) PO PRN (10:41)
[2023-10-03 11:17] VITALS: RESP 18
[2023-10-03] MEDS: INSULIN ASPART SLIDING SCALE (NOVOLOG) 1 VIAL SQ SCH (11:36)
[2023-10-03 14:10] LABS: HIV INTERPRETATION NEGATIVE (NEGATIVE)
[2023-10-04 11:15] LABS: BASO % 0.7 % (0-2.0); EOS % 0.7 % (0-4.5); HEMATOCRIT 32.5 % (35.4-49); HEMOGLOBIN 10.7 GM/dL (11.7-16.9); LYMPH % 29.8 % (8-40); MCH 29.5 pg (25.7-33.7); MCHC 32.8 g/dl (32.0-35.9); MEAN CELL VOLUME 90.1 fl (80-96); MONO % 9.2 % (3.8-10.2); NEUT % 59.6 % (42.8-82.8); PLATELET COUNT 402 10^3/uL (134-434); RBC 3.61 M/mm3 (4.00-5.60); RDW 14.2 % (11.9-15.9); WHITE BLOOD COUNT 8.1 K/mm3 (4.0-10.0)
[2023-10-04 11:45] LABS: POTASSIUM 4.5 mmol/L (3.5-5.1)
[2023-10-04 11:50] LABS: ALBUMIN 2.8 g/dl (3.4-5.0); BLOOD UREA NITROGEN 15.7 mg/dL (7-18); CALCIUM 8.8 mg/dL (8.5-10.1)
[2023-10-04 11:53] LABS: CREATININE 0.7 mg/dL (0.55-1.3)
[2023-10-04 11:55] LABS: BILIRUBIN,TOTAL 0.3 mg/dL (0.2-1); TOT PROT 6.7 g/dl (6.4-8.2)
[2023-10-04] MEDS: BACITRACIN ZINC 15 GM TUBE TOPICAL OINTMENT TP SCH (13:01)
[2023-10-04] MEDS: SULFAMETHOXAZOLE/TRIMETHOPRIM 800MG/160MG D.S. TABLET PO SCH (13:02)
[2023-10-04] MEDS: INSULIN (LEVEMIR) 100 UNITS/ML UNITS SQ SCH (21:27)
[2023-10-04 21:32] VITALS: BP 145/96; PULSE 82; TEMP 98.1
[2023-10-05] MEDS ORDERED: methaDONE HCL 10 MG TABLET PO ONE (10:00)
== END 2023-10-04 22:53 | disposition left against medical advice (07) | DRG 383 ==
LOC: JER 20:53 → JERBED 22:58 → J5S 10-01 02:02
PROVIDERS: ADMIT Internal Medicine
DX: L03.113 Cellulitis of right upper limb (principal); E11.01 Type 2 diabetes mellitus with hyperosmolarity with coma; G93.41 Metabolic encephalopathy; E11.42 Type 2 diabetes mellitus with diabetic polyneuropathy; E11.65 Type 2 diabetes mellitus with hyperglycemia; E83.42 Hypomagnesemia; E78.5 Hyperlipidemia, unspecified; F11.23 Opioid dependence with withdrawal; I10 Essential (primary) hypertension; L02.419 Cutaneous abscess of limb, unspecified; F41.8 Other specified anxiety disorders
CPT/HCPCS: 36415; 36600; 71045-TC-FY; 73130-TC-LT-FY; 73130-TC-RT-FY; 80048; 80053; 82010; 82803; 82962; 83036; 83605; 83735; 83930; 84100; 84484; 85025; 85610; 85651; 85730; 86140; 87040; 87070; 87186; 87205; 87389; 93005; 93010; 99285-25; J0131

== ENCOUNTER 2023-11-20 18:41 | Inpatient (IN) | payer BC ==
[2023-11-20 19:37] VITALS: BMI 21.9
[2023-11-20] MEDS ORDERED: INSULIN (NOVOLOG) ASPART 100 UNITS/ML 10ML VIAL ONE (21:17)
[2023-11-20] MEDS: INSULIN (NOVOLOG) ASPART 100 UNITS/ML 10ML VIAL SQ ONE (21:20)
[2023-11-20] MEDS ORDERED: IBUPROFEN 400 MG TABLET (FP) PO PRN (21:27)
[2023-11-20] MEDS ORDERED: LOPERAMIDE HCL 2 MG CAPSULE PO PRN (21:27)
[2023-11-20] MEDS ORDERED: POLYETHYLENE GLYCOL (HEALTHYLAX) 3350 17 GM PACKET PO PRN (21:27)
[2023-11-20] MEDS ORDERED: IBUPROFEN 600 MG TABLET (FP) PO PRN (21:27)
[2023-11-20] MEDS ORDERED: NICOTINE POLACRILEX 2 MG GUM BUC PRN (21:27)
[2023-11-20] MEDS ORDERED: MAG HYDROX/AL HYDROX/SIMETH 30 ML UNIT-DOSE CUP PO PRN (21:27)
[2023-11-20] MEDS ORDERED: BENZOCAINE/MENTHOL (CHLORASEPTIC ) LOZENGE MM PRN (21:27)
[2023-11-20] MEDS ORDERED: MAGNESIUM HYDROX 2400MG/30ML ORAL SUSPENSION 30 ML CUP PO PRN (21:27)
[2023-11-20] MEDS ORDERED: BENZONATATE 200 MG CAPSULE PO PRN (21:27)
[2023-11-20] MEDS ORDERED: NALOXONE HCL 0.4 MG/ML VIAL IM PRN (21:27)
[2023-11-20] MEDS ORDERED: guaiFENesin 600 MG TABLET.ER (FP) PO PRN (21:27)
[2023-11-20] MEDS ORDERED: ACETAMINOPHEN 325 MG TABLET (FP) PO PRN (21:27)
[2023-11-20] MEDS ORDERED: NALOXONE HCL (KLOXXADO) 8 MG SPRAY NS PRN (21:27)
[2023-11-20] MEDS: THIAMINE HCL 100 MG TABLET (FP) PO SCH (22:34)
[2023-11-20] MEDS: MELATONIN 5 MG TABLETS PO SCH (22:34)
[2023-11-20] MEDS ORDERED: ALBUTEROL SO4 HFA INHALER IH PRN (22:34)
[2023-11-21] MEDS: hydrOXYzine PAMOATE 25 MG CAPSULE (FP) PO PRN (01:40)
[2023-11-21] MEDS ORDERED: INSULIN ASPART SLIDING SCALE (NOVOLOG) 1 VIAL SQ ONE (07:49)
[2023-11-21] MEDS: INSULIN ASPART SLIDING SCALE (NOVOLOG) 1 VIAL SQ SCH (07:51)
[2023-11-21] MEDS: PRENATAL VITAMINS W/ FOLIC ACID TABLET (FP) PO SCH (09:24)
[2023-11-21] MEDS: NICOTINE 14 MG/24 HOURS TOPICAL PATCH TD SCH (09:24)
[2023-11-21 11:15] LABS: HEMATOCRIT 36.7 % (35.4-49); HEMOGLOBIN 12.3 GM/dL (11.7-16.9); MCH 29.5 pg (25.7-33.7); MCHC 33.5 g/dl (32.0-35.9); MEAN CELL VOLUME 88.1 fl (80-96); MEAN PLT VOLUME 8.9 fl (7.5-11.1); PLATELET COUNT 260 10^3/uL (134-434); RBC 4.16 M/mm3 (4.00-5.60); RDW 15.2 % (11.9-15.9); WHITE BLOOD COUNT 8.1 K/mm3 (4.0-10.0)
[2023-11-21] MEDS ORDERED: INSULIN (NOVOLOG) ASPART 100 UNITS/ML 10ML VIAL ONE (11:23)
[2023-11-21 11:31] LABS: CHLORIDE 95 mmol/L (98-107); POTASSIUM 4.3 mmol/L (3.5-5.1); SODIUM 128 mmol/L (136-145)
[2023-11-21 11:33] LABS: ALBUMIN 2.8 g/dl (3.4-5.0); CALCIUM 8.5 mg/dL (8.5-10.1)
[2023-11-21 11:34] LABS: ANION GAP 5 mmol/L (4-13); BLOOD UREA NITROGEN 13.1 mg/dL (7-18); CO2 28 mmol/L (21-32)
[2023-11-21 11:36] LABS: SGPT/ALT 21 U/L (13-61)
[2023-11-21 11:37] LABS: CREATININE 0.8 mg/dL (0.55-1.3); SGOT/AST 9 U/L (15-37)
[2023-11-21 11:38] LABS: BILIRUBIN,TOTAL 0.2 mg/dL (0.2-1); TOT PROT 6.3 g/dl (6.4-8.2)
[2023-11-21 11:39] LABS: ALK PHOS 85 U/L (45-117)
[2023-11-21 11:44] LABS: GLUCOSE,RANDOM 591 mg/dL (74-106)
[2023-11-22] MEDS ORDERED: INSULIN (NOVOLOG) ASPART 100 UNITS/ML 10ML VIAL ONE ×3 (04:46→23:05)
[2023-11-22] MEDS ORDERED: INSULIN ASPART SLIDING SCALE (NOVOLOG) 1 VIAL SQ SCH ×2 (09:10→16:30)
[2023-11-22] MEDS ORDERED: INSULIN (NOVOLOG) ASPART 100 UNITS/ML 10ML VIAL SQ SCH (11:00)
[2023-11-22] MEDS: INSULIN ASPART SLIDING SCALE (NOVOLOG) 1 VIAL SQ SCH ×2 (11:05→11:56)
[2023-11-22] MEDS: INSULIN (NOVOLOG) ASPART 100 UNITS/ML 10ML VIAL SQ SCH (11:56)
[2023-11-22 15:17] LABS: BASO % 0.4 % (0-2.0); EOS % 0.9 % (0-4.5); HEMATOCRIT 39.3 % (35.4-49); HEMOGLOBIN 13.1 GM/dL (11.7-16.9); LYMPH % 29.4 % (8-40); MCH 29.6 pg (25.7-33.7); MCHC 33.4 g/dl (32.0-35.9); MEAN CELL VOLUME 88.6 fl (80-96); MEAN PLT VOLUME 9.1 fl (7.5-11.1); MONO % 7.3 % (3.8-10.2); PLATELET COUNT 243 10^3/uL (134-434); RBC 4.43 M/mm3 (4.00-5.60); WHITE BLOOD COUNT 7.5 K/mm3 (4.0-10.0)
[2023-11-22 17:23] LABS: URINE APPEARANCE CLEAR; URINE BILIRUBIN NEGATIVE (NEGATIVE); URINE COLOR YELLOW; URINE GLUCOSE (UA) 3+ (NEGATIVE); URINE KETONE NEGATIVE (NEGATIVE); URINE LEUK ESTERASE NEGATIVE (NEGATIVE); URINE NITRITE NEGATIVE (NEGATIVE); URINE PROTEIN NEGATIVE (NEGATIVE); URINE UROBILINOGEN 0.2 mg/dL (0.2-1.0)
[2023-11-22 17:50] LABS: CHLORIDE 90 mmol/L (98-107); POTASSIUM 4.7 mmol/L (3.5-5.1); SODIUM 125 mmol/L (136-145)
[2023-11-22 17:52] LABS: CALCIUM 9.3 mg/dL (8.5-10.1)
[2023-11-22 17:53] LABS: ALBUMIN 3.3 g/dl (3.4-5.0); ANION GAP 9 mmol/L (4-13); BLOOD UREA NITROGEN 10.4 mg/dL (7-18); CO2 26 mmol/L (21-32)
[2023-11-22 17:56] LABS: SGOT/AST 13 U/L (15-37); SGPT/ALT 24 U/L (13-61)
[2023-11-22 17:57] LABS: TOT PROT 7.3 g/dl (6.4-8.2)
[2023-11-22 17:58] LABS: ALK PHOS 90 U/L (45-117); BILIRUBIN,TOTAL 0.2 mg/dL (0.2-1)
[2023-11-22 18:00] LABS: GLUCOSE,RANDOM 651 mg/dL (74-106)
[2023-11-22 18:24] LABS: LACTIC ACID 3.9 mmol/L (0.4-2.0)
[2023-11-22] MEDS ORDERED: INSULIN (LEVEMIR) 100 UNITS/ML UNITS SQ SCH ×2 (22:00)
[2023-11-22] MEDS: INSULIN (LEVEMIR) 100 UNITS/ML UNITS SQ SCH (23:10)
[2023-11-23] MEDS: MELATONIN 5 MG TABLETS PO ONE (01:36)
[2023-11-23] MEDS: metFORMIN HCL 500 MG TABLET (FP) PO SCH (06:32)
[2023-11-23] MEDS ORDERED: INSULIN (NOVOLOG) ASPART 100 UNITS/ML 10ML VIAL ONE ×2 (11:58→16:19)
[2023-11-23] MEDS: LISINOPRIL 10 MG TABLET PO ONE (18:15)
[2023-11-23] MEDS: INSULIN (LEVEMIR) 100 UNITS/ML UNITS SQ SCH (21:28)
[2023-11-23] MEDS: INSULIN (NOVOLOG) ASPART 100 UNITS/ML 10ML VIAL SQ SCH (21:30)
[2023-11-23] MEDS: INSULIN ASPART SLIDING SCALE (NOVOLOG) 1 VIAL SQ SCH (21:31)
[2023-11-24] MEDS ORDERED: INSULIN (NOVOLOG) ASPART 100 UNITS/ML 10ML VIAL ONE ×2 (11:56→16:29)
[2023-11-24] MEDS: MELATONIN 5 MG TABLETS PO SCH (21:14)
[2023-11-24] MEDS: INSULIN (LEVEMIR) 100 UNITS/ML UNITS SQ SCH (21:14)
[2023-11-24 21:50] VITALS: BP 134/83; PULSE 111; RESP 16; TEMP 98.2
== END 2023-11-24 21:55 | disposition left against medical advice (07) | DRG 770 ==
LOC: YASAS 18:41 → Y3NR 21:57 → Y5N 11-21 12:54
PROVIDERS: ADMIT Allergy & Immunology; ATTEND Psychiatry & Neurology Pain Medicine
PROC: HZ42ZZZ Group Counseling for Substance Abuse Treatment, Cognitive-Behavioral (ICD-10-PCS; principal; 2023-11-20)
DX: F11.20 Opioid dependence, uncomplicated (principal); F10.20 Alcohol dependence, uncomplicated; F16.20 Hallucinogen dependence, uncomplicated; F19.24 Other psychoactive substance dependence with psychoactive substance-induced mood disorder; F41.9 Anxiety disorder, unspecified; F32.A Depression, unspecified; G47.00 Insomnia, unspecified; I10 Essential (primary) hypertension; E11.65 Type 2 diabetes mellitus with hyperglycemia; E11.40 Type 2 diabetes mellitus with diabetic neuropathy, unspecified; Z79.4 Long term (current) use of insulin; Z79.84 Long term (current) use of oral hypoglycemic drugs; L98.8 Other specified disorders of the skin and subcutaneous tissue; Z86.11 Personal history of tuberculosis
CPT/HCPCS: 36415; 80053; 80307; 81003; 82010; 82962; 83036; 83605; 85025; 85027; 86780; 87811

== ENCOUNTER 2023-11-22 20:15 | Emergency (ER) | payer BC ==
[2023-11-22 20:22] VITALS: BP 143/95; PULSE 102; RESP 16; TEMP 98.1; BMI 21.9
[2023-11-22] MEDS: SODIUM CHLORIDE 0.9% 500 ML INFUS.BAG IV ONE (21:03)
[2023-11-22 21:06] LABS: BASO % 0.8 % (0-2.0); EOS % 0.9 % (0-4.5); HEMATOCRIT 37.9 % (35.4-49); HEMOGLOBIN 12.9 GM/dL (11.7-16.9); LYMPH % 33.8 % (8-40); MCH 29.7 pg (25.7-33.7); MEAN CELL VOLUME 87.5 fl (80-96); MEAN PLT VOLUME 8.2 fl (7.5-11.1); MONO % 6.9 % (3.8-10.2); NEUT % 57.6 % (42.8-82.8); PLATELET COUNT 250 10^3/uL (134-434); RBC 4.34 M/mm3 (4.00-5.60); RDW 15.1 % (11.9-15.9)
[2023-11-22 21:07] LABS: VENOUS BASE EXCESS 1.9 mmol/L (-2-2); VENOUS O2 SATURATION 62.4 % (70-80); VENOUS PCO2 51.1 mmHg (38-52); VENOUS PH 7.361 (7.310-7.410)
[2023-11-22 22:17] LABS: CHLORIDE 91 mmol/L (98-107); POTASSIUM 5.1 mmol/L (3.5-5.1); SODIUM 125 mmol/L (136-145)
[2023-11-22 22:20] LABS: CALCIUM 9.2 mg/dL (8.5-10.1)
[2023-11-22 22:21] LABS: ALBUMIN 3.3 g/dl (3.4-5.0); ANION GAP 5 mmol/L (4-13); BLOOD UREA NITROGEN 13.8 mg/dL (7-18); CO2 29 mmol/L (21-32)
[2023-11-22 22:24] LABS: CREATININE 0.8 mg/dL (0.55-1.3); SGOT/AST 17 U/L (15-37); SGPT/ALT 26 U/L (13-61)
[2023-11-22 22:25] LABS: TOT PROT 7.5 g/dl (6.4-8.2)
[2023-11-22 22:26] LABS: BILIRUBIN,TOTAL 0.3 mg/dL (0.2-1)
[2023-11-22 22:27] LABS: ALK PHOS 89 U/L (45-117)
[2023-11-22 22:41] LABS: GLUCOSE,RANDOM 518 mg/dL (74-106)
== END 2023-11-22 22:11 | disposition left against medical advice (07) ==
LOC: JER 20:15
DX: R73.9 Hyperglycemia, unspecified (principal)
CPT/HCPCS: 36415; 80053; 82010; 82803; 82962; 85025; 99283-25

== ENCOUNTER 2024-06-25 11:28 | Inpatient (IN) | payer OTHER ==
[2024-06-25 12:31] VITALS: BMI 21.6
[2024-06-25] MEDS ORDERED: BENZOCAINE/MENTHOL (CHLORASEPTIC ) LOZENGE MM PRN (13:32)
[2024-06-25] MEDS ORDERED: ONDANSETRON *ODT* 4 MG TABLET SL PRN (13:32)
[2024-06-25] MEDS ORDERED: IBUPROFEN 400 MG TABLET (FP) PO PRN (13:32)
[2024-06-25] MEDS ORDERED: POLYETHYLENE GLYCOL (HEALTHYLAX) 3350 17 GM PACKET PO PRN (13:32)
[2024-06-25] MEDS ORDERED: NICOTINE POLACRILEX 2 MG GUM BUC PRN (13:32)
[2024-06-25] MEDS ORDERED: hydrOXYzine PAMOATE 25 MG CAPSULE (FP) PO PRN (13:32)
[2024-06-25] MEDS ORDERED: ACETAMINOPHEN 325 MG TABLET (FP) PO PRN (13:32)
[2024-06-25] MEDS ORDERED: NALOXONE (NARCAN) HCL 4 MG/0.1 ML SPRAY NS PRN (13:32)
[2024-06-25] MEDS ORDERED: DICYCLOMINE HCL 10 MG CAPSULE PO PRN (13:32)
[2024-06-25] MEDS ORDERED: guaiFENesin 600 MG TABLET.ER (FP) PO PRN (13:32)
[2024-06-25] MEDS ORDERED: LOPERAMIDE HCL 2 MG CAPSULE PO PRN (13:32)
[2024-06-25] MEDS ORDERED: BISMUTH SUBSALICYLATE 524 MG/30 ML PO PRN (13:32)
[2024-06-25] MEDS ORDERED: MAGNESIUM HYDROX 2400MG/30ML ORAL SUSPENSION 30 ML CUP PO PRN (13:32)
[2024-06-25] MEDS ORDERED: MAG HYDROX/AL HYDROX/SIMETH 30 ML UNIT-DOSE CUP PO PRN (13:32)
[2024-06-25] MEDS ORDERED: BENZONATATE 200 MG CAPSULE PO PRN (13:32)
[2024-06-25] MEDS ORDERED: diazePAM 5 MG TABLET PO PRN (13:35)
[2024-06-25] MEDS ORDERED: METHOCARBAMOL 500 MG TABLET ONE (13:45)
[2024-06-25] MEDS ORDERED: IBUPROFEN 600 MG TABLET (FP) PO ONE (13:45)
[2024-06-25] MEDS: IBUPROFEN 600 MG TABLET (FP) PO PRN (13:47)
[2024-06-25] MEDS: METHOCARBAMOL 500 MG TABLET PO PRN (13:47)
[2024-06-25] MEDS ORDERED: cloNIDine HCL 0.1 MG TABLET ONE (13:56)
[2024-06-25] MEDS ORDERED: methaDONE HCL 10 MG TABLET (FOR DETOX USE ONLY) ONE (13:56)
[2024-06-25] MEDS: methaDONE HCL 10 MG TABLET PO ONE (13:57)
[2024-06-25] MEDS: cloNIDine HCL 0.1 MG TABLET PO SCH (13:57)
[2024-06-25] MEDS ORDERED: methaDONE HCL 10 MG TABLET PO PRN (15:32)
[2024-06-25] MEDS: diazePAM 5 MG TABLET PO SCH (21:10)
[2024-06-25] MEDS: INSULIN (NOVOLOG) ASPART 100 UNITS/ML 10ML VIAL SQ ONE (21:17)
[2024-06-25] MEDS: THIAMINE 100 MG TABLET PO SCH (22:51)
[2024-06-25] MEDS: MELATONIN 5 MG TABLETS PO SCH (22:52)
[2024-06-25] MEDS: INSULIN ASPART SLIDING SCALE (NOVOLOG) 1 VIAL SQ SCH (22:57)
[2024-06-25 23:17] VITALS: BP 123/76; RESP 18
[2024-06-25 23:38] VITALS: PULSE 104; TEMP 100.4
[2024-06-26] MEDS ORDERED: methaDONE 40 MG, methaDONE 10 MG PO ONE (10:00)
[2024-06-26] MEDS ORDERED: NICOTINE 14 MG/24 HOURS TOPICAL PATCH TD SCH (10:00)
[2024-06-26] MEDS ORDERED: PRENATAL VITAMINS W/ FOLIC ACID TABLET (FP) PO SCH (10:00)
[2024-06-27] MEDS ORDERED: cloNIDine HCL 0.1 MG TABLET PO PRN
[2024-06-27] MEDS ORDERED: diazePAM 5 MG TABLET PO SCH (06:00)
[2024-06-27] MEDS ORDERED: methaDONE 40 MG, methaDONE 20 MG PO ONE (10:00)
[2024-06-28] MEDS ORDERED: diazePAM 5 MG TABLET PO SCH (06:00)
[2024-06-28] MEDS ORDERED: methaDONE 40 MG, methaDONE 30 MG PO ONE (10:00)
[2024-06-29] MEDS ORDERED: diazePAM 5 MG TABLET PO ONE (06:00)
[2024-06-29] MEDS ORDERED: methaDONE HCL 40 MG DISPERSABLE TABLET PO ONE (10:00)
[2024-06-30] MEDS ORDERED: methaDONE 80 MG, methaDONE 10 MG PO ONE (10:00)
== END 2024-06-26 03:07 | disposition short-term general hospital (02) | DRG 773 ==
LOC: YASAS 11:28 → Y3N 20:01
PROVIDERS: ADMIT Allergy & Immunology; ATTEND Surgery
PROC: HZ2ZZZZ Detoxification Services for Substance Abuse Treatment (ICD-10-PCS; principal; 2024-06-25)
DX: F11.23 Opioid dependence with withdrawal (principal); F10.230 Alcohol dependence with withdrawal, uncomplicated; F14.20 Cocaine dependence, uncomplicated; F16.20 Hallucinogen dependence, uncomplicated; F17.210 Nicotine dependence, cigarettes, uncomplicated; F41.9 Anxiety disorder, unspecified; F32.A Depression, unspecified; I10 Essential (primary) hypertension; J45.909 Unspecified asthma, uncomplicated; Z79.84 Long term (current) use of oral hypoglycemic drugs; Z79.4 Long term (current) use of insulin; Z86.19 Personal history of other infectious and parasitic diseases
CPT/HCPCS: 36415; 80305; 80307; 82962

== ENCOUNTER 2024-06-26 00:29 | Inpatient (IN) | payer OTHER ==
[2024-06-26 00:51] VITALS: BMI 21.9
[2024-06-26] MEDS ORDERED: ACETAMINOPHEN INJECTION 100 ML ONE (00:58)
[2024-06-26] MEDS: ACETAMINOPHEN 1000 MG/100 ML BAG IVPB ONE (01:37)
[2024-06-26] MEDS ORDERED: PIPERACILLIN/TAZOB 4.5 GM 4.5 GM/100 ML BAG IVPB ONE (01:40)
[2024-06-26] MEDS ORDERED: VANCOMYCIN 1 GRAM (PRE-DOCKED) 1,000 MG/250 ML BAG IVPB ONE (01:41)
[2024-06-26] MEDS ORDERED: AZITHROMYCIN IVPB 500 MG/250 ML BAG IVPB ONE (01:41)
[2024-06-26 02:03] LABS: BASO % 0.2 % (0-2.0); HEMATOCRIT 44.2 % (35.4-49); HEMOGLOBIN 14.5 GM/dL (11.7-16.9); LYMPH % 19.1 % (8-40); MCH 27.4 pg (25.7-33.7); MCHC 32.8 g/dl (32.0-35.9); MEAN CELL VOLUME 83.6 fl (80-96); MEAN PLT VOLUME 9.6 fl (7.5-11.1); MONO % 9.9 % (3.8-10.2); NEUT % 70.8 % (42.8-82.8); PLATELET COUNT 187 10^3/uL (134-434); RBC 5.29 M/mm3 (4.00-5.60); RDW 15.2 % (11.9-15.9)
[2024-06-26] MEDS: PIPERACILLIN/TAZOB 4.5 GM 4.5 GM in DEXTROSE 5%-WATER 100 ML IVPB ONE (02:03)
[2024-06-26] MEDS: SODIUM CHLORIDE 0.9% 500 ML INFUS.BAG IV ONE (02:03)
[2024-06-26] MEDS: AZITHROMYCIN IVPB 500 MG in DEXTROSE 5%-WATER - 250 ML IVPB ONE (02:03)
[2024-06-26 02:12] LABS: VENOUS O2 SATURATION 64.5 % (70-80); VENOUS PCO2 46.1 mmHg (38-52); VENOUS PH 7.394 (7.310-7.410)
[2024-06-26 02:28] LABS: INR 1.23 (0.83-1.09); PROTHROMBIN TIME (PATIENT) 14.1 SEC (9.7-13.0)
[2024-06-26 02:30] LABS: CALCIUM 8.5 mg/dL (8.5-10.1)
[2024-06-26 02:31] LABS: ACTIVATED PTT 34.5 SECONDS (25.2-36.5)
[2024-06-26 02:35] LABS: BILIRUBIN,TOTAL 0.7 mg/dL (0.2-1); PHOSPHOROUS 1.7 mg/dL (2.5-4.9); TOT PROT 6.7 g/dl (6.4-8.2)
[2024-06-26 02:40] LABS: LACTIC ACID 2.9 mmol/L (0.4-2.0)
[2024-06-26] MEDS: VANCOMYCIN 1,000 MG in DEXTROSE 5%-WATER - 250 ML IVPB ONE (03:52)
[2024-06-26] MEDS ORDERED: NAPH,MB-DB/K PH,MBDB POWDER PACKET ONE (04:11)
[2024-06-26] MEDS ORDERED: MAGNESIUM 1GM/D5W - 1 GM/100 ML IVPB IVPB ONE (04:12)
[2024-06-26] MEDS: MAGNESIUM 1GM/D5W - 1 GM/100 ML IVPB IVPB ONE (04:20)
[2024-06-26] MEDS: NAPH,MB-DB/K PH,MBDB POWDER PACKET PO ONE (04:20)
[2024-06-26 05:57] LABS: PH,URINE 5.5 (5.0-8.0); URINE APPEARANCE CLEAR; URINE BILIRUBIN NEGATIVE (NEGATIVE); URINE COLOR YELLOW; URINE GLUCOSE (UA) 3+ (NEGATIVE); URINE KETONE TRACE (NEGATIVE); URINE LEUK ESTERASE NEGATIVE (NEGATIVE); URINE NITRITE NEGATIVE (NEGATIVE); URINE PROTEIN NEGATIVE (NEGATIVE)
[2024-06-26] MEDS ORDERED: LORazepam 2 MG/ML SDV VIAL IVPUSH PRN (07:11)
[2024-06-26] MEDS: FOLIC ACID INJECTION - 1 MG, THIAMINE HCL 100 MG, MULTIVIT INJECTION ADULT 10 ML in SOD... IVPB ONE (07:19)
[2024-06-26] MEDS: INSULIN ASPART SLIDING SCALE (NOVOLOG) 1 VIAL SQ SCH (07:20)
[2024-06-26 07:55] LABS: BASO % 0.3 % (0-2.0); EOS % 0.3 % (0-4.5); HEMATOCRIT 38.4 % (35.4-49); HEMOGLOBIN 12.8 GM/dL (11.7-16.9); LYMPH % 21.5 % (8-40); MCH 27.5 pg (25.7-33.7); MCHC 33.3 g/dl (32.0-35.9); MEAN CELL VOLUME 82.5 fl (80-96); MEAN PLT VOLUME 9.5 fl (7.5-11.1); MONO % 8.5 % (3.8-10.2); NEUT % 69.4 % (42.8-82.8); PLATELET COUNT 160 10^3/uL (134-434); RBC 4.66 M/mm3 (4.00-5.60); RDW 14.9 % (11.9-15.9); WHITE BLOOD COUNT 6.5 K/mm3 (4.0-10.0)
[2024-06-26 08:21] LABS: PHOSPHOROUS 1.3 mg/dL (2.5-4.9)
[2024-06-26] MEDS ORDERED: PIPERACILLIN/TAZOB 4.5 GM 4.5 GM/100 ML BAG IVPB SCH (09:00)
[2024-06-26] MEDS ORDERED: VANCOMYCIN/WATER FOR INJ (PEG) 1,000 MG/200 ML BAG IVPB SCH (09:00)
[2024-06-26] MEDS: ENOXAPARIN NA (PORCINE) 40 MG/0.4 ML DISP.SYRIN SQ SCH (10:36)
[2024-06-26] MEDS: PIPERACILLIN/TAZOB 4.5 GM 4.5 GM/100 ML BAG IVPB SCH (11:13)
[2024-06-26] MEDS ORDERED: INSULIN (NOVOLOG MIX 70/30) 100 UNITS/ML MDV SQ ONE (14:33)
[2024-06-26] MEDS ORDERED: diazePAM 5 MG TABLET PO PRN (15:16)
[2024-06-26] MEDS: methaDONE HCL 10 MG TABLET PO SCH (16:29)
[2024-06-26] MEDS: VANCOMYCIN/WATER FOR INJ (PEG) 1,000 MG/200 ML BAG IVPB SCH (16:30)
[2024-06-26] MEDS: diazePAM 5 MG TABLET PO SCH (16:32)
[2024-06-26] MEDS: PIPERACILLIN/TAZOB 3.375 GM 50 ML IVPB SCH (17:52)
[2024-06-26] MEDS: INSULIN (LEVEMIR) 100 UNITS/ML UNITS SQ SCH (21:53)
[2024-06-26 21:58] LABS: URINE BARBITURATES NEGATIVE (NEGATIVE)
[2024-06-26 21:59] LABS: OPIATES, URI NEGATIVE (NEGATIVE)
[2024-06-26 22:00] LABS: PHENCYCLIDINE,URINE NEGATIVE (NEGATIVE)
[2024-06-26 22:22] LABS: COCAINE, UR POSITIVE (NEGATIVE); METHADONE, UR POSITIVE (NEGATIVE); URINE AMPHETAMINES NEGATIVE (NEGATIVE); URINE BENZODIAZEPINES POSITIVE (NEGATIVE)
[2024-06-27] MEDS: VANCOMYCIN HCL IN 5 % DEXTROSE 1,500 MG/300 ML BAG IVPB SCH (04:31)
[2024-06-27] MEDS: INSULIN ASPART SLIDING SCALE (NOVOLOG) 1 VIAL SQ SCH (06:29)
[2024-06-27 09:55] LABS: BASO % 0.4 % (0-2.0); EOS % 1.6 % (0-4.5); HEMATOCRIT 38.6 % (35.4-49); HEMOGLOBIN 12.7 GM/dL (11.7-16.9); LYMPH % 16.7 % (8-40); MCH 27.8 pg (25.7-33.7); MEAN CELL VOLUME 84.2 fl (80-96); MEAN PLT VOLUME 9.8 fl (7.5-11.1); MONO % 8.9 % (3.8-10.2); NEUT % 72.4 % (42.8-82.8); PLATELET COUNT 194 10^3/uL (134-434); RBC 4.59 M/mm3 (4.00-5.60); WHITE BLOOD COUNT 8.7 K/mm3 (4.0-10.0)
[2024-06-27] MEDS: BACITRACIN ZINC 15 GM TUBE TOPICAL OINTMENT TP SCH (10:21)
[2024-06-27] MEDS: FOLIC ACID 1 MG TABLET (FP) PO SCH (10:22)
[2024-06-27 10:29] LABS: POTASSIUM 3.8 mmol/L (3.5-5.1)
[2024-06-27 10:36] LABS: ALBUMIN 2.5 g/dl (3.4-5.0); BLOOD UREA NITROGEN 15.5 mg/dL (7-18); CALCIUM 8.5 mg/dL (8.5-10.1)
[2024-06-27 10:37] LABS: MAGNESIUM 1.7 mg/dL (1.8-2.4)
[2024-06-27 10:39] LABS: BILIRUBIN,TOTAL 0.5 mg/dL (0.2-1); CREATININE 0.9 mg/dL (0.55-1.3); TOT PROT 5.9 g/dl (6.4-8.2)
[2024-06-27] MEDS: THIAMINE HCL 200 MG/2 ML VIAL IVPB SCH (11:26)
[2024-06-27] MEDS: ACETAMINOPHEN 325 MG TABLET (FP) PO PRN (12:41)
[2024-06-27] MEDS: CEFTRIAXONE 2 GM in DEXTROSE 5%-WATER 100 ML IVPB SCH (13:26)
[2024-06-28] MEDS: diazePAM 5 MG TABLET PO SCH (05:43)
[2024-06-28 08:07] LABS: BASO % 0.3 % (0-2.0); EOS % 1.3 % (0-4.5); HEMATOCRIT 33.1 % (35.4-49); HEMOGLOBIN 10.9 GM/dL (11.7-16.9); LYMPH % 16.5 % (8-40); MCH 27.5 pg (25.7-33.7); MCHC 32.9 g/dl (32.0-35.9); MEAN CELL VOLUME 83.4 fl (80-96); MEAN PLT VOLUME 9.2 fl (7.5-11.1); MONO % 10.7 % (3.8-10.2); NEUT % 71.2 % (42.8-82.8); PLATELET COUNT 200 10^3/uL (134-434); RBC 3.97 M/mm3 (4.00-5.60); RDW 14.9 % (11.9-15.9); WHITE BLOOD COUNT 6.4 K/mm3 (4.0-10.0)
[2024-06-28 08:26] LABS: POTASSIUM 3.6 mmol/L (3.5-5.1)
[2024-06-28 08:37] LABS: BLOOD UREA NITROGEN 13.5 mg/dL (7-18); CALCIUM 7.9 mg/dL (8.5-10.1); MAGNESIUM 1.5 mg/dL (1.8-2.4)
[2024-06-28 08:39] LABS: BILIRUBIN,TOTAL 0.3 mg/dL (0.2-1); TOT PROT 5.2 g/dl (6.4-8.2)
[2024-06-28 08:40] LABS: CREATININE 0.7 mg/dL (0.55-1.3)
[2024-06-28] MEDS: AZITHROMYCIN 250 MG TABLET PO SCH (13:10)
[2024-06-28] MEDS: MAGNESIUM 1GM/D5W 100ML - 100 ML IVPB IVPB ONE (13:11)
[2024-06-28] MEDS: FOLIC ACID 1 MG TABLET (FP) PO SCH (13:16)
[2024-06-28] MEDS: THIAMINE 100 MG TABLET PO SCH (13:22)
[2024-06-28 21:18] LABS: URINE AMPHETAMINES NEGATIVE (NEGATIVE)
[2024-06-28 21:19] LABS: OPIATES, URI NEGATIVE (NEGATIVE); PHENCYCLIDINE,URINE NEGATIVE (NEGATIVE); URINE BARBITURATES NEGATIVE (NEGATIVE)
[2024-06-28 21:22] LABS: COCAINE, UR POSITIVE (NEGATIVE); METHADONE, UR POSITIVE (NEGATIVE); URINE BENZODIAZEPINES POSITIVE (NEGATIVE)
[2024-06-29] MEDS: diazePAM 5 MG TABLET PO SCH (06:34)
[2024-06-29 13:24] LABS: BASO % 0.3 % (0-2.0); EOS % 0.6 % (0-4.5); HEMATOCRIT 32.8 % (35.4-49); HEMOGLOBIN 11.3 GM/dL (11.7-16.9); LYMPH % 13.1 % (8-40); MCH 28.1 pg (25.7-33.7); MCHC 34.3 g/dl (32.0-35.9); MEAN CELL VOLUME 81.9 fl (80-96); MEAN PLT VOLUME 8.7 fl (7.5-11.1); MONO % 15.8 % (3.8-10.2); NEUT % 70.2 % (42.8-82.8); PLATELET COUNT 217 10^3/uL (134-434); RBC 4.01 M/mm3 (4.00-5.60); RDW 15.1 % (11.9-15.9); WHITE BLOOD COUNT 8.3 K/mm3 (4.0-10.0)
[2024-06-29 13:53] LABS: CALCIUM 8.1 mg/dL (8.5-10.1)
[2024-06-29 13:55] LABS: ALBUMIN 2.1 g/dl (3.4-5.0); BLOOD UREA NITROGEN 12.4 mg/dL (7-18); MAGNESIUM 1.5 mg/dL (1.8-2.4)
[2024-06-29 13:57] LABS: CREATININE 0.5 mg/dL (0.55-1.3)
[2024-06-29 13:58] LABS: BILIRUBIN,TOTAL 0.3 mg/dL (0.2-1); TOT PROT 5.4 g/dl (6.4-8.2)
[2024-06-30] MEDS: diazePAM 5 MG TABLET PO ONE (06:26)
[2024-06-30] MEDS: INSULIN (LEVEMIR) 100 UNITS/ML UNITS SQ SCH (06:27)
[2024-06-30] MEDS: INSULIN ASPART SLIDING SCALE (NOVOLOG) 1 VIAL SQ SCH (06:27)
[2024-06-30 09:04] LABS: BASO % 0.2 % (0-2.0); EOS % 1.3 % (0-4.5); HEMATOCRIT 33.4 % (35.4-49); HEMOGLOBIN 11.4 GM/dL (11.7-16.9); LYMPH % 12.4 % (8-40); MCH 27.8 pg (25.7-33.7); MCHC 34.2 g/dl (32.0-35.9); MEAN CELL VOLUME 81.4 fl (80-96); MEAN PLT VOLUME 7.8 fl (7.5-11.1); MONO % 18.1 % (3.8-10.2); PLATELET COUNT 241 10^3/uL (134-434); WHITE BLOOD COUNT 6.8 K/mm3 (4.0-10.0)
[2024-06-30 09:17] LABS: POTASSIUM 3.9 mmol/L (3.5-5.1)
[2024-06-30 09:22] LABS: ALBUMIN 2.1 g/dl (3.4-5.0); BLOOD UREA NITROGEN 14.4 mg/dL (7-18)
[2024-06-30 09:23] LABS: CALCIUM 8.4 mg/dL (8.5-10.1); MAGNESIUM 1.4 mg/dL (1.8-2.4)
[2024-06-30 09:26] LABS: CREATININE 0.6 mg/dL (0.55-1.3)
[2024-06-30] MEDS: CEFTRIAXONE 2 GM-D5W BAG 2 GM/50 ML BAG IVPB SCH (09:26)
[2024-06-30 09:27] LABS: BILIRUBIN,TOTAL 0.3 mg/dL (0.2-1); TOT PROT 5.6 g/dl (6.4-8.2)
[2024-06-30] MEDS: MAGNESIUM 2GM/50ML STERILE WATER IVPB IVPB ONE (20:27)
[2024-07-01 09:30] LABS: BASO % 0.3 % (0-2.0); EOS % 1.3 % (0-4.5); HEMATOCRIT 34.8 % (35.4-49); HEMOGLOBIN 11.4 GM/dL (11.7-16.9); LYMPH % 15.2 % (8-40); MCH 27.3 pg (25.7-33.7); MCHC 32.8 g/dl (32.0-35.9); MEAN CELL VOLUME 83.2 fl (80-96); MEAN PLT VOLUME 7.9 fl (7.5-11.1); MONO % 15.1 % (3.8-10.2); NEUT % 68.1 % (42.8-82.8); PLATELET COUNT 280 10^3/uL (134-434); RBC 4.18 M/mm3 (4.00-5.60); WHITE BLOOD COUNT 7.1 K/mm3 (4.0-10.0)
[2024-07-01 09:50] LABS: POTASSIUM 4.7 mmol/L (3.5-5.1)
[2024-07-01 09:59] LABS: CALCIUM 8.7 mg/dL (8.5-10.1)
[2024-07-01 10:01] LABS: ALBUMIN 2.2 g/dl (3.4-5.0); BILIRUBIN,TOTAL 0.3 mg/dL (0.2-1); BLOOD UREA NITROGEN 14.9 mg/dL (7-18)
[2024-07-01 10:06] LABS: CREATININE 0.6 mg/dL (0.55-1.3)
[2024-07-01 10:08] LABS: MAGNESIUM 1.8 mg/dL (1.8-2.4)
[2024-07-02 10:31] LABS: BASO % 0.5 % (0-2.0); EOS % 1.3 % (0-4.5); HEMATOCRIT 35.8 % (35.4-49); HEMOGLOBIN 11.6 GM/dL (11.7-16.9); MCH 27.3 pg (25.7-33.7); MCHC 32.3 g/dl (32.0-35.9); MEAN CELL VOLUME 84.4 fl (80-96); MEAN PLT VOLUME 8.2 fl (7.5-11.1); MONO % 11.9 % (3.8-10.2); NEUT % 61.3 % (42.8-82.8); PLATELET COUNT 380 10^3/uL (134-434); RBC 4.24 M/mm3 (4.00-5.60); RDW 14.8 % (11.9-15.9); WHITE BLOOD COUNT 7.5 K/mm3 (4.0-10.0)
[2024-07-02 10:50] LABS: POTASSIUM 4.8 mmol/L (3.5-5.1)
[2024-07-02 10:59] LABS: BLOOD UREA NITROGEN 15.3 mg/dL (7-18); CALCIUM 9.2 mg/dL (8.5-10.1)
[2024-07-02 11:00] LABS: ALBUMIN 2.4 g/dl (3.4-5.0); MAGNESIUM 1.9 mg/dL (1.8-2.4)
[2024-07-02 11:03] LABS: CREATININE 0.7 mg/dL (0.55-1.3)
[2024-07-02 11:04] LABS: BILIRUBIN,TOTAL 0.3 mg/dL (0.2-1)
[2024-07-02 11:05] LABS: TOT PROT 6.7 g/dl (6.4-8.2)
[2024-07-02 14:16] VITALS: BP 116/80; PULSE 93; RESP 20; TEMP 98.1
[2024-07-02] MEDS ORDERED: AMOX TR/POT CLAV 875MG/125MG TABLETS (FP) PO SCH (17:30)
== END 2024-07-02 14:59 | disposition other institution (70) | DRG 139 ==
LOC: JER 00:29 → JERBED 03:13 → J7W 05:15 → J8W 06-29 18:41
PROVIDERS: ADMIT Internal Medicine; ATTEND Nurse Practitioner Family
DX: J18.9 Pneumonia, unspecified organism (principal); E11.65 Type 2 diabetes mellitus with hyperglycemia; E11.40 Type 2 diabetes mellitus with diabetic neuropathy, unspecified; F41.9 Anxiety disorder, unspecified; F32.A Depression, unspecified; J45.20 Mild intermittent asthma, uncomplicated; F10.230 Alcohol dependence with withdrawal, uncomplicated; I10 Essential (primary) hypertension; F19.10 Other psychoactive substance abuse, uncomplicated; F11.23 Opioid dependence with withdrawal; Z59.00 Homelessness unspecified; Z56.0 Unemployment, unspecified
CPT/HCPCS: 0241U-QW; 36415; 71045-TC-FY; 80048; 80053; 80307; 81003; 82010; 82550; 82553; 82803; 82962; 83036; 83605; 83735; 84100; 84484; 85025; 85027; 85610; 85730; 86850; 86900; 86901; 87040; 87070; 87086; 87205; 87899; 93005; 93010; 99285-25; J0131

== ENCOUNTER 2024-07-02 15:32 | Inpatient (IN) | payer OTHER ==
[2024-07-02 16:52] VITALS: BMI 21.9
[2024-07-02] MEDS ORDERED: NALOXONE (NARCAN) HCL 4 MG/0.1 ML SPRAY NS PRN (18:41)
[2024-07-02] MEDS ORDERED: DOCUSATE SODIUM 100 MG CAPSULE (FP) PO PRN (18:41)
[2024-07-02] MEDS ORDERED: BISACODYL 5 MG TABLET.DR (FP) PO PRN (18:41)
[2024-07-02] MEDS ORDERED: LOPERAMIDE HCL 2 MG CAPSULE PO PRN (18:41)
[2024-07-02] MEDS ORDERED: BENZOCAINE/MENTHOL (CHLORASEPTIC ) LOZENGE MM PRN (18:41)
[2024-07-02] MEDS ORDERED: NICOTINE POLACRILEX 2 MG LOZENGE BC PRN (18:41)
[2024-07-02] MEDS ORDERED: NALOXONE HCL 0.4 MG/ML VIAL IVPUSH PRN (18:41)
[2024-07-02] MEDS ORDERED: P-EPHED 60MG/TRIPROLIDI 2.5MG TABLET PO PRN (18:41)
[2024-07-02] MEDS ORDERED: BENZONATATE 200 MG CAPSULE PO PRN (18:41)
[2024-07-02] MEDS ORDERED: hydrOXYzine PAMOATE 25 MG CAPSULE (FP) PO PRN (18:41)
[2024-07-02] MEDS ORDERED: POLYETHYLENE GLYCOL (HEALTHYLAX) 3350 17 GM PACKET PO PRN (18:41)
[2024-07-02] MEDS ORDERED: METHOCARBAMOL 500 MG TABLET PO PRN (18:41)
[2024-07-02] MEDS ORDERED: MAGNESIUM HYDROX 2400MG/30ML ORAL SUSPENSION 30 ML CUP PO PRN (18:41)
[2024-07-02] MEDS ORDERED: guaiFENesin 600 MG TABLET.ER (FP) PO PRN (18:41)
[2024-07-02] MEDS ORDERED: IBUPROFEN 400 MG TABLET (FP) PO PRN (18:41)
[2024-07-02] MEDS ORDERED: ACETAMINOPHEN 325 MG TABLET (FP) PO PRN (18:41)
[2024-07-02] MEDS ORDERED: NICOTINE POLACRILEX 2 MG GUM BUC PRN (18:41)
[2024-07-02] MEDS ORDERED: MAG HYDROX/AL HYDROX/SIMETH 30 ML UNIT-DOSE CUP PO PRN (18:41)
[2024-07-02] MEDS: AMOX TR/POT CLAV 875MG/125MG TABLETS (FP) PO SCH (20:50)
[2024-07-02] MEDS: MELATONIN 5 MG TABLETS PO SCH (21:28)
[2024-07-02] MEDS: THIAMINE 100 MG TABLET PO SCH (21:28)
[2024-07-02] MEDS ORDERED: INSULIN (NOVOLOG) ASPART 100 UNITS/ML 10ML VIAL ONE (21:32)
[2024-07-02] MEDS: INSULIN ASPART SLIDING SCALE (NOVOLOG) 1 VIAL SQ SCH (21:32)
[2024-07-02] MEDS ORDERED: INSULIN ASPART SLIDING SCALE (NOVOLOG) 1 VIAL SQ SCH (22:00)
[2024-07-03] MEDS: methaDONE HCL 40 MG DISPERSABLE TABLET PO SCH (06:52)
[2024-07-03] MEDS: INSULIN (LEVEMIR) 100 UNITS/ML UNITS SQ SCH (06:53)
[2024-07-03] MEDS ORDERED: INSULIN (NOVOLOG) ASPART 100 UNITS/ML 10ML VIAL ONE ×3 (07:29→23:17)
[2024-07-03] MEDS ORDERED: INSULIN (LEVEMIR) 100 UNITS/ML UNITS SQ ONE (07:30)
[2024-07-03] MEDS: TAMSULOSIN HCL 0.4 MG CAP PO SCH (08:02)
[2024-07-03] MEDS: FOLIC ACID 1 MG TABLET (FP) PO SCH (10:27)
[2024-07-03] MEDS: PRENATAL VITAMINS W/ FOLIC ACID TABLET (FP) PO SCH (10:28)
[2024-07-03] MEDS: FERROUS SO4 325 MG TABLET (FP) PO SCH (15:00)
[2024-07-03] MEDS: SUVOREXANT 10 MG TABLET PO PRN (22:19)
[2024-07-04] MEDS ORDERED: INSULIN (LEVEMIR) 100 UNITS/ML UNITS SQ ONE (07:19)
[2024-07-04] MEDS ORDERED: INSULIN (NOVOLOG) ASPART 100 UNITS/ML 10ML VIAL ONE ×3 (07:19→16:43)
[2024-07-05] MEDS ORDERED: INSULIN (NOVOLOG) ASPART 100 UNITS/ML 10ML VIAL ONE ×3 (05:48→16:39)
[2024-07-06] MEDS ORDERED: INSULIN (LEVEMIR) 100 UNITS/ML UNITS SQ ONE (07:37)
[2024-07-06] MEDS ORDERED: INSULIN (NOVOLOG) ASPART 100 UNITS/ML 10ML VIAL ONE ×2 (07:37→11:55)
[2024-07-07] MEDS ORDERED: INSULIN (NOVOLOG) ASPART 100 UNITS/ML 10ML VIAL ONE ×3 (07:36→17:41)
[2024-07-08] MEDS ORDERED: INSULIN (NOVOLOG) ASPART 100 UNITS/ML 10ML VIAL ONE (07:10)
[2024-07-08] MEDS: IBUPROFEN 600 MG TABLET (FP) PO PRN (07:36)
[2024-07-08] MEDS ORDERED: NICOTINE POLACRILEX 4 MG GUM BUC PRN (13:17)
[2024-07-08] MEDS: GABAPENTIN 300 MG CAPSULE PO SCH (13:48)
[2024-07-08] MEDS ORDERED: GABAPENTIN 100 MG CAPSULE PO SCH (14:00)
[2024-07-08] MEDS: metFORMIN HCL 500 MG TABLET (FP) PO SCH (17:17)
[2024-07-08] MEDS: BACLOFEN 10 MG TABLET (FP) PO SCH (21:04)
[2024-07-08] MEDS: ATORVASTATIN CA 40 MG TABLET (FP) PO SCH (21:04)
[2024-07-09] MEDS ORDERED: INSULIN ASPART SLIDING SCALE (NOVOLOG) 1 VIAL SQ ONE ×2 (07:09→12:00)
[2024-07-09] MEDS: MINERAL OIL/PET HY-PHL TOPICAL OINTMENT 454 GM JAR TP SCH (17:26)
[2024-07-09] MEDS ORDERED: INSULIN (NOVOLOG MIX 70/30) 100 UNITS/ML MDV SQ ONE (22:16)
[2024-07-11] MEDS ORDERED: INSULIN (NOVOLOG) ASPART 100 UNITS/ML 10ML VIAL ONE ×2 (07:27→11:49)
[2024-07-12] MEDS ORDERED: INSULIN (NOVOLOG) ASPART 100 UNITS/ML 10ML VIAL ONE ×3 (07:57→17:04)
[2024-07-13] MEDS ORDERED: INSULIN (NOVOLOG) ASPART 100 UNITS/ML 10ML VIAL ONE (12:00)
[2024-07-13] MEDS: BACITRACIN 0.9 GM PACKET TP SCH (18:30)
[2024-07-13] MEDS: GABAPENTIN 300 MG CAPSULE PO SCH (21:48)
[2024-07-13] MEDS ORDERED: BACITRACIN ZINC 15 GM TUBE TOPICAL OINTMENT TP SCH (22:00)
[2024-07-14] MEDS ORDERED: INSULIN (NOVOLOG) ASPART 100 UNITS/ML 10ML VIAL ONE ×3 (07:07→22:50)
[2024-07-15] MEDS ORDERED: INSULIN (NOVOLOG) ASPART 100 UNITS/ML 10ML VIAL ONE ×3 (06:58→22:07)
[2024-07-16] MEDS ORDERED: INSULIN (NOVOLOG) ASPART 100 UNITS/ML 10ML VIAL ONE ×2 (07:37→21:59)
[2024-07-17] MEDS ORDERED: INSULIN (NOVOLOG) ASPART 100 UNITS/ML 10ML VIAL ONE ×4 (07:42→16:34)
[2024-07-17] MEDS: FUROSEMIDE 20 MG TABLET (FP) PO SCH (15:09)
[2024-07-18] MEDS ORDERED: INSULIN (NOVOLOG) ASPART 100 UNITS/ML 10ML VIAL ONE ×3 (06:36→16:38)
[2024-07-19] MEDS ORDERED: INSULIN (NOVOLOG) ASPART 100 UNITS/ML 10ML VIAL ONE ×2 (07:04→11:38)
[2024-07-20] MEDS ORDERED: INSULIN (NOVOLOG) ASPART 100 UNITS/ML 10ML VIAL ONE ×2 (07:17→11:56)
[2024-07-21] MEDS ORDERED: INSULIN (NOVOLOG) ASPART 100 UNITS/ML 10ML VIAL ONE (06:45)
[2024-07-22] MEDS ORDERED: INSULIN (NOVOLOG) ASPART 100 UNITS/ML 10ML VIAL ONE (07:10)
[2024-07-22 09:09] VITALS: BP 146/89; PULSE 90; RESP 18; TEMP 97.6
[2024-07-22] MEDS: NALOXONE (NYS OPIOID OVERDOSE PROGRAM) 4 MG/0.1 ML SPRAY NS SCH (11:23)
== END 2024-07-22 12:04 | disposition left against medical advice (07) | DRG 772 ==
LOC: YASAS 15:32 → Y3E 18:41
PROVIDERS: ADMIT Psychiatry & Neurology Pain Medicine; ATTEND Psychiatry & Neurology Pain Medicine
PROC: HZ42ZZZ Group Counseling for Substance Abuse Treatment, Cognitive-Behavioral (ICD-10-PCS; principal; 2024-07-02)
DX: F11.20 Opioid dependence, uncomplicated (principal); F10.20 Alcohol dependence, uncomplicated; F14.20 Cocaine dependence, uncomplicated; F16.10 Hallucinogen abuse, uncomplicated; F17.210 Nicotine dependence, cigarettes, uncomplicated; F41.9 Anxiety disorder, unspecified; F32.A Depression, unspecified; F19.94 Other psychoactive substance use, unspecified with psychoactive substance-induced mood disorder; I10 Essential (primary) hypertension; J44.9 Chronic obstructive pulmonary disease, unspecified; N40.0 Benign prostatic hyperplasia without lower urinary tract symptoms; D64.9 Anemia, unspecified; E11.40 Type 2 diabetes mellitus with diabetic neuropathy, unspecified; Z79.84 Long term (current) use of oral hypoglycemic drugs; Z79.4 Long term (current) use of insulin; Z86.11 Personal history of tuberculosis; Z86.19 Personal history of other infectious and parasitic diseases; Z56.0 Unemployment, unspecified; Z59.00 Homelessness unspecified
CPT/HCPCS: 80305; 80307; 82962; J0475